=== PATIENT | female | born 1955 | race Caucasian/White ===

== ENCOUNTER → 2019-10-23 09:51 | Outpatient (BNVA) | payer BC, SELFPAY | PROVIDERS: PCP Family Medicine; Visit Provider Nurse Practitioner Family | DX: I50.9 Heart failure, unspecified (principal) | CPT/HCPCS: 71046 ==

== ENCOUNTER → 2019-10-30 08:17 | Outpatient (BNVA) | payer BC, SELFPAY | PROVIDERS: PCP Family Medicine; Visit Provider Nurse Practitioner Family | DX: I50.9 Heart failure, unspecified (principal); R35.0 Frequency of micturition; J32.9 Chronic sinusitis, unspecified | CPT/HCPCS: 80053; 80061; 81003; 83880; 85025 ==

== ENCOUNTER 2020-02-18 06:54 | Day surgery (SDC) | payer BC, SELFPAY ==
[2020-02-18 07:19] VITALS: BP 137/96; PULSE 97; RESP 18; TEMP 36.1; O2SAT 97
[2020-02-18] MEDS: sodium chloride 0.9% 1,000 ML 30 ML IV (07:28)
--- NOTE | 2020-02-18 08:05 | P.ANESASSM_ITS ---
Pre-Anesthetic Assessment Pre-Anesthetic Assessment: Height/Weight: Height 1.63 m Weight 144.242 kg Temp Pulse Resp BP Pulse Ox 97.0 F L 97 18 137/96 97 02/18/20 07:19 02/18/20 07:19 02/18/20 07:19 02/18/20 07:19 02/18/20 07:19 Preop Diagnosis: Screening Proposed Procedure: Operation Date: 02/18/20 08:35 Proposed Procedures p Colonoscopy 97472 Z12.11(Not Applicable) - Rolan Howell MD Last intake: Intake Last Liquid Date 02/17/20 Last Liquid Time 19:30 Last Solid Date 02/17/20 Last Solid Time 19:30 Social: Social History: Tobacco (remote) and No alcohol Exam: Pre-Anes Outpt Exam: alert, oriented x 3, clear to auscultation bi laterally and regular rate & rhythm Airway: Submandibular: WNL Cervical ROM: WNL Dentition: False (upper) History/ROS: No significant history except as noted Pulmonary: Pulmonary: COPD (mild), CALLES and Sleep apnea CV/HEM: CV/HEM: CAD and ND : : None reported Hepatic: Hepatic: None reported GI: GI: GERD (controlled) Metabolic: Metabolic: Morbid obesity Musc/skel: Musc/skel: Fibromyalgia Neuropsych: Neuropsych: Anxiety and Depression Anesthetic Plan: ASA status: 3 Anesthesia: Anesthesia Evaluation and MAC Risk of > 500 ml blood loss (7ml/kg in children): No Meds/Allergies Current Medications: Current Medications Generic Name Dose Route Start Last Admin Trade Name Freq PRN Reason Stop Dose Admin Sodium Chloride 1,000 mls @ 30 ml s/hr 02/18/20 07:15 02/18/20 07:28 Sodium Chloride 0.9% IV 30 mls/hr .Q24H ANNETTE Administration PFSH Anesthesia PFSH: Medical History Apnea, sleep Arteriosclerotic heart disease (ASHD) Degenerative arthritis of knee Diverticulosis Fibromyalgia GERD (gastroesophageal reflux disease) Hx of fracture of clavicle Metabolic syndrome Rosacea Seasonal allergies Thrombocytosis Surgical History History of colonoscopy (~2007) History of hysterectomy History of knee surgery Hx of amputation Partial R greater toe Hx of angioplasty Family History Father Diabetes COPD (chronic obstructive pulmonary disease) Mother Hypertension Cancer MOTHER HAS A HISTORY OF KIDNEY CANCER Denies family history of Anesthesia complication Bleeding disorder Social History Smoking and tobacco status: former smoker Lives independently: Yes History of recent travel: No Data Anesthesia Cardiac Studies: No Data to Display
--- NOTE | 2020-02-18 08:22 | W.PM.OPSFHP ---
Same Day Surgery H&P Indication for Procedure/HPI DATE OF PROCEDURE: February 18, 2020 CHIEF COMPLAINT/INDICATIONFOR SURGICAL PROCEDURE: history of colon PREOP DIAGNOSIS: Screening PLANNED PROCEDRUE: Operation Date: 02/18/20 08:35 Proposed Procedures p Colonoscopy 16935 Z12.11(Not Applicable) - Rolan Howell MD Medications/Allergies* Home Medications Medication Instructions Recorded Confirmed Type albuterol sulfate 90 mcg/actuation 2 puff INHALATION Q6H PRN 10/23/19 02/14/20 History aerosol inhaler aspirin 325 mg tablet 325 mg PO DAILY tab 10/23/19 02/18/20 History cetirizine 10 mg tablet 10 mg PO DAILY tab 10/23/19 02/18/20 History mometasone 50 mcg/actuation nasal 2 spray INTRANASAL BID 10/23/19 02/18/20 History spray triamcinolone acetonide 0.1 % 1 applic TOPICAL BID 10/23/19 02/18/20 History topical cream famotidine 20 mg tablet 20 mg PO DAILY 12/10/19 02/18/20 History tizanidine 2 mg capsule 2 mg PO DAILY PRN cap 12/10/19 02/18/20 History Allergies/Adverse Reactions Allergy/AdvReac Type Severity Reaction Status Date / Time acetaminophen Allergy Unknown Verified 12/10/19 14:26 [From Darvocet-N] celecoxib [From Celebrex] Allergy Unknown Verified 12/10/19 14:26 codeine Allergy Unknown Verified 12/10/19 14:26 hydrocodone Allergy ADR-Nausea Verified 12/10/19 14:26 meperidine [From Demerol] Allergy ALGY-Difficulty Verified 12/10/19 14:26 Breathing oxycodone [From Tylox] Allergy ADR-Nausea Verified 12/10/19 14:26 propoxyphene Allergy Unknown Verified 12/10/19 14:26 [From Darvocet-N] Sulfa (Sulfonamide Allergy Unknown Verified 12/10/19 14:26 Antibiotics) Current Medications: Generic Name Dose Route Start Last Admin Trade Name Freq PRN Reason Stop Dose Admin Sodium Chloride 1,000 mls @ 30 mls/hr 02/18/20 07:15 02/18/20 07:28 Sodium Chloride 0.9% IV 30 mls/hr .Q24H ANNETTE Administration Pertinent History/Comorbid Conditions* Medical History (Updated 01/07/20 @ 15:58 by SHAHANA Mandel) Apnea, sleep Arteriosclerotic heart disease (ASHD) Degenerative arthritis of knee Diverticulosis Fibromyalgia GERD (gastroesophageal reflux disease) Hx of fracture of clavicle Metabolic syndrome Rosacea Seasonal allergies Thrombocytosis Surgical History (Updated 12/10/19 @ 14:44 by Rolan Howell MD) History of colonoscopy (~2007) History of hysterectomy History of knee surgery Hx of amputation Partial R greater toe Hx of angioplasty Family History (Updated 12/10/19 @ 14:31 by CONY Farr) Diabetes Father COPD (chronic obstructive pulmonary disease) Father Cancer Mother MOTHER HAS A HISTORY OF KIDNEY CANCER Hypertension Mother Denies family history of Anesthesia complication Bleeding disorder Social History Smoking and tobacco status: former smoker Lives independently: Yes History of recent travel: No Pertinent Exam Findings alert, oriented x 3 and regular rate & rhythm Recommendations Surgery/Procedure today Coding Level of Care Code Acute Stitching Machine Feeder Or Offbearer for Gopal Contreras
[2020-02-18 11:16] VITALS: BP 134/71; PULSE 83; RESP 16; TEMP 36.7; O2SAT 94
[2020-02-18 11:32] VITALS: BP 119/97; PULSE 80; RESP 18; TEMP 36.6; O2SAT 98
== END 2020-02-18 11:55 | disposition home or self-care (01) ==
PROVIDERS: PCP Family Medicine; Visit Provider Surgery
PROC: 0DJD8ZZ Inspection of Lower Intestinal Tract, Via Natural or Artificial Opening Endoscopic (ICD-10-PCS; CPT 45378; principal; 2020-02-18 08:30)
DX: Z12.11 Encounter for screening for malignant neoplasm of colon (principal); K63.5 Polyp of colon; G47.30 Sleep apnea, unspecified; M19.90 Unspecified osteoarthritis, unspecified site; M79.7 Fibromyalgia; K21.9 Gastro-esophageal reflux disease without esophagitis; J44.9 Chronic obstructive pulmonary disease, unspecified; I25.10 Atherosclerotic heart disease of native coronary artery without angina pectoris; I25.2 Old myocardial infarction; E66.01 Morbid (severe) obesity due to excess calories; Z68.43 Body mass index [BMI] 50.0-59.9, adult
CPT/HCPCS: 45378; 12345; J2704; J7030

== ENCOUNTER 2020-03-04 14:23 | Outpatient (CLI) | payer BC, SELFPAY ==
--- NOTE | 2020-03-04 14:28 | XR_ITS ---
WS: [id number] SCREENING DEXA SCAN Ntractive CLINICAL INFORMATION: POSTMENOPAUSAL STATE COMPARISON: None. FINDINGS: The L1-L4 bone mineral density measures 1.172 g/cm2. This corresponds to a T score score of -0.1 and Z score of 0.2. Left femoral neck bone mineral density measures 0.990 g/cm2. This corresponds to a T score of -0.1 an d Z score of 0.1. Right femoral neck bone mineral density measures 1.012 g/cm2. This corresponds to a T score 0.0of and Z score of 0.3. Mean femoral neck bone mineral density measures 1.001 g/cm2. This corresponds to a T score of -0.1 an d Z score of 0.2. XR/XR DEXA axial skeleton* [id number] IMPRESSION: Normal bone mineralization. Patient's FRAX calculated 10 year probability for major osteoporotic fracture i s 6.2 % and osteoporotic hip fracture is 0.3%.
--- NOTE | 2020-03-04 15:11 | MM_ITS ---
WS: [id number] BILATERAL SCREENING DIGITAL MAMMOGRAM WITH CAD HISTORY: SCREEN COMPARISON: 10/22/2018, 04/04/2017 and 09/21/2017 Bilateral CC and MLO views submitted. Computer aided detection analyzed. Breast composition: There are scattered areas of fibroglandular density. No suspicious masses, microc alcifications or architectural distortion. Asymmetry in the posterior central RIGHT breast has been s table over multiple prior years. Benign calcification in the posterior LEFT breast. MM/[place] [id number] IMPRESSION: BI-RADS: 2-Benign FOLLOW UP: 1 Year Follow-up
== END 2020-03-04 14:24 | disposition home or self-care (01) ==
PROVIDERS: PCP Family Medicine; Visit Provider Family Medicine
DX: Z12.31 Encounter for screening mammogram for malignant neoplasm of breast (principal); Z78.0 Asymptomatic menopausal state
CPT/HCPCS: 77067; 77080

== ENCOUNTER → 2020-04-26 13:02 | Outpatient (BNVA) | payer BC, SELFPAY | PROVIDERS: PCP Family Medicine; Visit Provider Nurse Practitioner | DX: Z11.59 Encounter for screening for other viral diseases; B34.9 Viral infection, unspecified; Z68.43 Body mass index [BMI] 50.0-59.9, adult; F17.211 Nicotine dependence, cigarettes, in remission | CPT/HCPCS: 87635 ==

== ENCOUNTER → 2020-06-17 16:14 | Outpatient (BNVA) | payer BC, SELFPAY | PROVIDERS: PCP Family Medicine; Visit Provider Nurse Practitioner Family | DX: M54.5 Low back pain (principal) | CPT/HCPCS: 81000 ==

== ENCOUNTER → 2020-07-02 15:06 | Outpatient (BNVA) | payer BC, SELFPAY | PROVIDERS: PCP Family Medicine; Visit Provider Nurse Practitioner Family | DX: M79.604 Pain in right leg (principal); M79.605 Pain in left leg; R73.9 Hyperglycemia, unspecified; I10 Essential (primary) hypertension; E78.5 Hyperlipidemia, unspecified; J32.9 Chronic sinusitis, unspecified; J30.9 Allergic rhinitis, unspecified; B37.3 Candidiasis of vulva and vagina; M79.622 Pain in left upper arm; Z68.43 Body mass index [BMI] 50.0-59.9, adult; F17.211 Nicotine dependence, cigarettes, in remission; Z71.89 Other specified counseling | CPT/HCPCS: 80053; 80061; 83036; 84443; 85025 ==

== ENCOUNTER → 2020-10-16 10:36 | Outpatient (BNVA) | payer BC, SELFPAY | PROVIDERS: PCP Family Medicine; Visit Provider Nurse Practitioner Family | DX: R73.9 Hyperglycemia, unspecified (principal); R30.0 Dysuria; Z00.00 Encounter for general adult medical examination without abnormal findings; E78.5 Hyperlipidemia, unspecified; I10 Essential (primary) hypertension; Z68.43 Body mass index [BMI] 50.0-59.9, adult; F17.211 Nicotine dependence, cigarettes, in remission | CPT/HCPCS: 80053; 80061; 81000; 83036; 85025; 87086; 88175 ==

== ENCOUNTER → 2021-05-19 09:53 | Outpatient (BNVA) | payer BC, SELFPAY | PROVIDERS: PCP Family Medicine; Visit Provider Family Medicine | DX: R73.9 Hyperglycemia, unspecified (principal); I10 Essential (primary) hypertension | CPT/HCPCS: 80053; 80061; 84443; 85025 ==

== ENCOUNTER 2021-05-21 14:25 | Outpatient (CLI) | payer BC, SELFPAY ==
--- NOTE | 2021-05-21 14:36 | XR_ITS ---
WS: [id number] Lumbar spine, 3 views, 05/21/2021 Clinical Data: M54.5 - Low back pain Comparison: None. Findings: No compression fractures or subluxation is seen. No disc space narrowing is seen. The transverse proc esses and SI joints are normal. There is osteoarthritic spurring of all lumbar vertebral bodies. XR/XR lumbar spine 2-3V* [id number] Impression: Moderate osteoarthritis of the lumbar vertebral bodies.
== END 2021-05-21 14:26 | disposition home or self-care (01) ==
LOC: RAD 14:32
PROVIDERS: PCP Family Medicine; Visit Provider Family Medicine
DX: M47.816 Spondylosis without myelopathy or radiculopathy, lumbar region (principal)
CPT/HCPCS: 72100

== ENCOUNTER → 2021-09-06 15:41 | Outpatient (BNVA) | payer BC, SELFPAY | PROVIDERS: PCP Family Medicine; Visit Provider Specialist | DX: M25.569 Pain in unspecified knee (principal); M17.0 Bilateral primary osteoarthritis of knee; E66.01 Morbid (severe) obesity due to excess calories; Z68.43 Body mass index [BMI] 50.0-59.9, adult | CPT/HCPCS: 73560; 73565 ==

== ENCOUNTER → 2021-09-16 14:06 | Outpatient (BNVA) | payer BC, SELFPAY | PROVIDERS: PCP Family Medicine; Referring Provider Specialist; Visit Provider Anesthesiology Pain Medicine | DX: G89.29 Other chronic pain (principal); M47.816 Spondylosis without myelopathy or radiculopathy, lumbar region; M79.7 Fibromyalgia; F41.9 Anxiety disorder, unspecified; M25.561 Pain in right knee; M25.562 Pain in left knee; E66.01 Morbid (severe) obesity due to excess calories; M19.90 Unspecified osteoarthritis, unspecified site; Z68.43 Body mass index [BMI] 50.0-59.9, adult; Z87.891 Personal history of nicotine dependence | CPT/HCPCS: 99204 ==

== ENCOUNTER 2021-10-06 06:00 | Outpatient (RCR) | payer BC, SELFPAY | END 2021-10-08 23:59 | disposition home or self-care (01) | LOC: TPT 06:00 | PROVIDERS: PCP Family Medicine; Referring Provider Anesthesiology Pain Medicine; Visit Provider Anesthesiology Pain Medicine | DX: M54.50 Low back pain, unspecified (principal); G89.29 Other chronic pain | CPT/HCPCS: 97162 ==

== ENCOUNTER 2021-10-09 06:00 | Outpatient (RCR) | payer BC, SELFPAY | END 2021-11-08 23:59 | disposition home or self-care (01) | LOC: TPT 06:00 | PROVIDERS: PCP Family Medicine; Referring Provider Anesthesiology Pain Medicine; Visit Provider Anesthesiology Pain Medicine | DX: M54.50 Low back pain, unspecified (principal); G89.29 Other chronic pain | CPT/HCPCS: 97110 ==

== ENCOUNTER 2021-11-09 06:00 | Outpatient (RCR) | payer BC, SELFPAY | END 2021-12-06 23:59 | disposition home or self-care (01) | LOC: TPT 06:00 | PROVIDERS: PCP Family Medicine; Visit Provider Anesthesiology Pain Medicine | DX: M54.50 Low back pain, unspecified (principal); G89.29 Other chronic pain | CPT/HCPCS: 97110 ==

== ENCOUNTER → 2021-11-23 10:15 | Outpatient (BNVA) | payer BC, SELFPAY | PROVIDERS: PCP Family Medicine; Visit Provider Family Medicine | DX: Z00.00 Encounter for general adult medical examination without abnormal findings (principal); E88.81 Metabolic syndrome and other insulin resistance; E78.5 Hyperlipidemia, unspecified; Z12.31 Encounter for screening mammogram for malignant neoplasm of breast | CPT/HCPCS: 80053; 80061; 83036; 84443; 85025; 88175 ==

== ENCOUNTER 2021-12-07 06:00 | Outpatient (RCR) | payer BC, SELFPAY | END 2021-12-08 23:59 | disposition home or self-care (01) | LOC: TPT 06:00 | PROVIDERS: PCP Family Medicine; Visit Provider Anesthesiology Pain Medicine | DX: M54.50 Low back pain, unspecified (principal); G89.29 Other chronic pain | CPT/HCPCS: 97110 ==

== ENCOUNTER 2022-02-09 13:07 | Outpatient (CLI) | payer SELFPAY ==
--- NOTE | 2022-02-09 13:30 | USCV_ITS ---
Henny Downey Age: 66 Gender: F : 1955 Exam Date: 02/09/2022 13:25 Ordering Phys: Sherri Servin NP Technologist: Exam Location: [facility] [place] Indication: lt leg pain PROCEDURES: Venous duplex imaging was performed in only the left lower extremity. The following venous structures were evaluated: common femoral vein, profunda vein, proximal portion of the greater saphenous vein, superficial femoral vein, and the popliteal vein. In addition, the posterior tibial and peroneal trunk were evaluated. FINDINGS: Normal 2-D Doppler and augmentation and compressibility throughout the lower extremity venous structures. Additional imaging through the proximal calf veins also reveals no thrombus. Limited evaluation of the greater saphenous vein is patent with no thrombus.. CONCLUSIONS No evidence of left lower extremity DVT. Talon Cloud MD (Electronically Signed) Final Date: 09 Feb 2022 15:03 S
== END 2022-02-09 13:08 | disposition home or self-care (01) ==
LOC: RAD 13:08
PROVIDERS: PCP Family Medicine; Visit Provider Nurse Practitioner Family
DX: M79.605 Pain in left leg (principal); M79.89 Other specified soft tissue disorders; R60.9 Edema, unspecified
CPT/HCPCS: 80053; 82306; 82607; 82746; 83880; 85025; 93971

== ENCOUNTER → 2022-02-10 08:59 | Outpatient (BNVA) | payer SELFPAY | PROVIDERS: PCP Family Medicine; Visit Provider Nurse Practitioner Family | DX: R73.9 Hyperglycemia, unspecified (principal) | CPT/HCPCS: 83036 ==

== ENCOUNTER → 2022-02-11 11:30 | Outpatient (BNVA) | payer BC, SELFPAY | PROVIDERS: PCP Family Medicine; Visit Provider Family Medicine | DX: M25.472 Effusion, left ankle (principal); M79.89 Other specified soft tissue disorders; R06.02 Shortness of breath | CPT/HCPCS: 71046; 73610; 73630 ==

== ENCOUNTER → 2022-07-21 11:15 | Outpatient (BNVA) | payer MEDICARE, OTHER, SELFPAY | PROVIDERS: PCP Family Medicine; Visit Provider Nurse Practitioner Family | DX: E55.9 Vitamin D deficiency, unspecified (principal); R60.9 Edema, unspecified; R53.83 Other fatigue; M79.7 Fibromyalgia; E66.01 Morbid (severe) obesity due to excess calories; R73.9 Hyperglycemia, unspecified; E88.81 Metabolic syndrome and other insulin resistance; E78.5 Hyperlipidemia, unspecified; F41.9 Anxiety disorder, unspecified; I25.10 Atherosclerotic heart disease of native coronary artery without angina pectoris; I10 Essential (primary) hypertension; Z91.89 Other specified personal risk factors, not elsewhere classified; M79.604 Pain in right leg; M79.605 Pain in left leg; Z12.31 Encounter for screening mammogram for malignant neoplasm of breast; R53.1 Weakness; Z13.820 Encounter for screening for osteoporosis; Z78.0 Asymptomatic menopausal state; J32.9 Chronic sinusitis, unspecified; L65.9 Nonscarring hair loss, unspecified; R42 Dizziness and giddiness | CPT/HCPCS: 80053; 80061; 83036 ==

== ENCOUNTER 2022-09-16 13:05 | Outpatient (CLI) | payer MEDICARE, OTHER, SELFPAY ==
--- NOTE | 2022-09-16 13:30 | XR_ITS ---
WS: [id number] DEXA (DUAL ENERGY X-RAY ABSORPTIOMETRY) Bone mineral density was performed using a [employer] machine. HISTORY: screening COMPARISON: 03/04/2020 Lumbar spine BMD (L1-L4): 1.189 g/cm2 T score: 0.1 Z score: 0.5 Total hip BMD: Left: 0.941 g/cm2. T score: -0.5 Z score: -0.2 Right: 0.995 g/cm2. T score: -0.1 Z score: 0.3 10 year probability of a major osteoporotic fracture is 6.8%. Compared to the prior study from 03/04/2020. Lumbar spine bone mineral density has increased by 1.5%. Bilateral hips bone mineral density has decreased by 3.3%. XR/XR DEXA axial skeleton* [id number] IMPRESSION: NORMAL BONE MINERAL DENSITY based upon the WHO classification for females. Significant decrease in bone mineral density within the hips since the prior .
== END 2022-09-16 13:06 | disposition home or self-care (01) ==
LOC: RAD 13:06
PROVIDERS: PCP Family Medicine; Visit Provider Nurse Practitioner Family
DX: Z13.820 Encounter for screening for osteoporosis (principal); Z78.0 Asymptomatic menopausal state
CPT/HCPCS: 77080

== ENCOUNTER 2022-09-16 13:05 | Outpatient (CLI) | payer MEDICARE, SELFPAY ==
--- NOTE | 2022-09-16 13:20 | MM_ITS ---
WS: [id number] Bilateral screening 3D tomosynthesis digital mammogram, 09/16/2022 Clinical Data: screening Comparison: 03/04/2020, 10/22/2018, 09/21/2017, 04/04/2017, 10/14/2016, 04/14/2016, 04/06/2016, 03/11/201511/27, 10/17/2012, 03/09/2012, 08/26/2011 08/05/2011, 06/03/2010, 05/26/2009 11/21/2007. Findings: The breast parenchymal pattern shows fat replacement. No spiculated masses or clustered calcification s are seen. There are no secondary signs of carcinoma. There are mole markers on the left breast. The re are benign mammograms in both axilla. MM/[place] [id number] Impression: 1. Negative bilateral mammogram unchanged. 2. Recommend annual screening mammograms. BIRADS: 1-Negative FOLLOW UP: 1 Year Follow-up The CAD policy checker was used.
== END 2022-09-16 13:06 | disposition home or self-care (01) ==
LOC: RAD 13:06
PROVIDERS: PCP Family Medicine; Visit Provider Nurse Practitioner Family
DX: Z12.31 Encounter for screening mammogram for malignant neoplasm of breast (principal)
CPT/HCPCS: 77063; 77067

== ENCOUNTER → 2022-12-15 16:26 | Outpatient (BNVA) | payer MEDICARE, OTHER, SELFPAY | PROVIDERS: PCP Family Medicine; Visit Provider Nurse Practitioner Family | DX: J01.00 Acute maxillary sinusitis, unspecified (principal); E66.01 Morbid (severe) obesity due to excess calories; E88.81 Metabolic syndrome and other insulin resistance; I10 Essential (primary) hypertension; Z91.89 Other specified personal risk factors, not elsewhere classified; R09.81 Nasal congestion | CPT/HCPCS: 80053; 80061 ==

== ENCOUNTER 2023-01-15 12:19 | Observation (INO) | payer MEDICARE, OTHER, SELFPAY ==
[2023-01-15] VITALS (9 sets, daily range): BP systolic 104–188; BP diastolic 67–98; PULSE 66–89; RESP 18–24; TEMP 36.4–36.7; O2SAT 98–100
--- NOTE | 2023-01-15 12:30 | ED_ITS ---
HPI - SOB/Dyspnea General: Chief Complaint: Shortness of Breath/Dyspnea Stated Complaint: sob, dizziness Time Seen by Provider: 01/15/23 12:27 History of Present Illness: HPI Narrative: Ms. Bates is a 67-year-old lady presenting to the emergency department for dizziness and shortness of breath. Patient reports worsening symptoms over the past few weeks however significantly worse over the past few days. She reports exertional dyspnea, denies associated cough, occasional chest heaviness. Intensity symptoms is moderate. Course has worsened. No other specific changes in health, exacerbating, or alleviating factors identified. Onset (ago): week(s) Timing: progressively worsening Severity: moderate Exacerbating factors: exertion Associated symptoms: Reports other Review of Systems General: Reports: 10 or more systems reviewed and unremarkable except in HPI and below PFSH ED PFSH: Medical History Apnea, sleep Arteriosclerotic heart disease (ASHD) Degenerative arthritis of knee Diverticulosis Fibromyalgia GERD (gastroesophageal reflux disease) Hx of fracture of clavicle Metabolic syndrome Rosacea Seasonal allergies Thrombocytosis Surgical History History of colonoscopy (02/18/20) History of hysterectomy History of knee surgery Hx of amputation Partial R greater toe Hx of angioplasty Family History Father Diabetes COPD (chronic obstructive pulmonary disease) Thyroid condition Mother Hypertension Cancer MOTHER HAS A HISTORY OF KIDNEY CANCER Stroke Brother Diabetes Grandfather Colon cancer paternal Sister Colon cancer, Onset Age: 35 Denies family history of Ovarian cancer Clotting disorder Heart disease Hyperlipidemia Breast cancer Anesthesia complication Bleeding disorder Uterine cancer Social History Smoking and tobacco status: former smoker Quit status (tobacco): has quit using tobacco Year quit tobacco: 1984 Second hand smoke exposure: No Alcohol intake: current Alcohol intake frequency: holidays/special occasions only Alcohol type: wine and hard liquor Lives independently: Yes Household members: significant other Marital status: service: No Current occupational status: employed Current gender identity: Female Special cristofer needs: No Agree to transfusion: Yes Female Reproductive History: Date of menopause: 11/22/88 Physical Exam Const: COMMON NORMALS: patient oriented x3 and alert GENERAL APPEARANCE: cooperative and well developed HENMT: COMMON NORMALS: normocephalic and atraumatic HEAD & SCALP: normocephalic and atraumatic THROAT: posterior oropharynx normal Eye: COMMON NORMALS: conjunctivae normal CONJUNCTIVA: Yes conjunctivae normal SCLERA: sclerae normal Neck/C-Spine: COMMON NORMALS: supple GENERAL: Yes trachea midline Resp: COMMON NORMALS: clear to auscultation bilaterally EFFORT & INSPECTI ON: Yes able to speak in complete sentences AUSCULTATION: clear to auscultation bilaterally Cardio: COMMON NORMALS: regular rate and regular rhythm RATE: regular rate RHYTHM: regular rhythm GI: COMMON NORMALS: Soft to palpation PALPATION: Yes Soft to palpation and No Tenderness to palpation present (GI) Extremity: GENERAL: Yes normal exam except as noted and No edema Neuro: COMMON NORMALS: patient oriented x3, CN's II-XII intact bilaterally, moves all extremities, no focal motor deficits and no sensory deficits noted SENSORIUM/ORIENTATION: Yes alert and No Orientation impaired Psych: COMMON NORMALS: mental status grossly normal and Normal thought process present THOUGHT PROCESS: Normal thought process present Course Vital Signs: Vital signs: Vital Signs Temperature 97.7 F 01/16/23 17:09 Pulse Rate 85 01/16/23 17:09 Respiratory Rate 18 01/16/23 17:09 Blood Pressure 116/80 01/16/23 17:09 Pulse Oximetry 96 01/16/23 17:09 Oxygen Delivery Me thod Room Air 01/16/23 15:48 Oxygen Flow Rate 3 01/16/23 14:04 MDM - SOB/Dyspnea Medical Decision Making 67-year-old lady presenting with shortness of breath and dizziness as well as generalized weakness. Exam as above. No focal neurologic findings. EKG demonstrates sinus rhythm with normal axis and intervals, there are nonspecific ST segment abnormalities, no STEMI. Labs with leukocytosis and microcytic anemia. Metabolic panel without acute derangement to explain symptoms. Squamous epithelial contamination on urinalysis with no convincing evidence of urinary tract infection. Chest x-ray with no lobar consolidation or pneumothorax. Patient quite symptomatic with exertion and is requiring supplemental oxygen which is new. She therefore requires inpatient evaluation. The results of ED evaluation were discussed with the patient including plan for admission due to requirement for level of care not available if discharged to prevent significant worsening/deterioration. Patient agreeable with plan. Discussed with hospitalist service who was agreeable to admit patient. Medical Records I reviewed the patient's medical records. Lab Data I reviewed the patient's lab results. 01/16/23 13:37 01/16/23 06:42 Labs/Radiology: Radiology Impressions Chest X-Ray 01/15/23 12:38 IMPRESSION: No acute findings. Chest CTA 01/15/23 16:23 IMPRESSION: 1. Negative for pulmonary embolus. 2. Multiple enlarged mediastinal lymph nodes measuring up to 16 mm, nonspecific. 3. Main pulmonary artery is somewhat prominent which can be a finding of pulmonary hypertension. 4. Several hepatic cysts. 5. Spleen borderline enlarged at 13 cm. 6. Bilateral largely upper lobe focal airspace opacities, measuring up to 19 mm in right upper lobe. Highly suspicious nodule(s). Consider non-emergent PET/CT, or tissue sampling.(Reference: Amanda) 7. Cardiomegaly. 8. Ascending thoracic aorta is somewhat prominent at 3.6 cm. REFERENCES: Amanda Shah, et al. Guidelines for Management of Incidental Pulmonary Nodules Detected on CT Images: From the Fleischner Society 2017. Radiology. 2017;284(1):228-243. Venous Duplex 01/15/23 16:42 IMPRESSION: No evidence of deep vein thrombosis. Laboratory Results WBC 10.0 10^3/uL (4.0-10.0) 01/15/23 12:58 RBC 4.57 10^6/uL (4.1-5.3) 01/15/23 12:58 Hgb 8.8 g/dL (11.5-15.3) L 01/15/23 12:58 Hct 32.1 % (37.0-47.0) L 01/15/23 12:58 MCV 70.2 fl (81-99) L 01/15/23 12:58 MCH 19.3 pg (28.0-34.0) L 01/15/23 12:58 MCHC 27.4 g/dL (30.0-36.0) L 01/15/23 12:58 RDW 16.4 % (12.1-15.1) H 01/15/23 12:58 Plt Count 475 10^3/cmm (130-400) H 01/15/23 12:58 MPV 10.6 fL (7.4-10.4) H 01/15/23 12:58 Neut % (Auto) 63.5 % 01/15/23 12:58 Lymph % (Auto) 23.1 % 01/15/23 12:58 [place] % (Auto) 8.1 % 01/15/23 12:58 Eos % (Auto) 3.6 % 01/15/23 12:58 Baso % (Auto) 1.3 % 01/15/23 12:58 Neut # (Auto) 6.35 10^3/uL (1.8-7.7) 01/15/23 12:58 Lymph # (Auto) 2.3 10^3/uL (0.8-4.8) 01/15/23 12:58 [place] # (Auto) 0.8 10^3/uL (0.2-0.9) 01/15/23 12:58 Eos # (Auto) 0.4 10^3/uL (0.0-0.8) 01/15/23 12:58 Baso # (Auto) 0.1 10^3/uL (0.0-0.1) 01/15/23 12:58 Nucleated RBC % (auto) 0 % 01/15/23 12:58 Nucleated RBCs # 0.0 /100WBC 01/15/23 12:58 D-Dimer 0.49 ug/mIFEU (0-0.59) 01/15/23 12:58 Specimen Type Arterial 01/15/23 16:20 Sample Site Radial, left 01/15/23 16:20 ABG pH 7.43 (7.35-7.45) 01/15/23 16:20 ABG pCO2 36.1 mmHg (35-45) 01/15/23 16:20 ABG pO2 79.0 mmHg (80.0-100.0) L 01/15/23 16:20 ABG HCO3 24.2 mmol/L (22-26) 01/15/23 16:20 ABG O2 Saturation 97.3 01/15/23 16:20 ABG Base Excess 0.1 mmol/L (-2.0-2.0) 01/15/23 16:20 Yoan Test Pos 01/15/23 16:20 A-a O2 Gradient 3.4 mmHg (5-10) L 01/15/23 16:20 Hematocrit 29.2 % (37-47) L 01/15/23 16:20 Hgb O2 Saturation 95.1 % (95-100) 01/15/23 16:20 Carboxyhemoglobin 1.5 %THgb (0.4-20.1) 01/15/23 16:20 Methemoglobin 0.6 % (0.4-1.5) 01/15/23 16:20 Total Hemoglobin 9.5 g/dL (12-16) L 01/15/23 16:20 Sodium 142.0 mmol/L (131-143) 01/15/23 16:20 Potassium 3.7 mmol/L (3.5-5.0) 01/15/23 16:20 Glucose 104.0 mg/dL (70-115) 01/15/23 16:20 Ionized Calcium 1.2 mmol/L (1.1-1.4) 01/15/23 16:20 O2 Delivery Device Room air 01/15/23 16:20 FiO2 21.0 % 01/15/23 16:20 Text Transcriber ID Cak 01/15/23 16:20 Sodium 136 mmol/L (136-145) 01/15/23 12:58 Potassium 4.1 mmol/L (3.5-5.1) 01/15/23 12:58 Chloride 102 mmol/L (98-107) 01/15/23 12:58 Carbon Dioxide 24 mmol/L (22-29) 01/15/23 12:58 Anion Gap 14.1 (5-19) 01/15/23 12:58 BUN 14 mg/dL (8-23) 01/15/23 12:58 Creatinine 0.7 mg/dL (0.5-0.9) 01/15/23 12:58 GFR Calculation 84.0 mL/min (90-130) L 01/15/23 12:58 Glucose 120 mg/dL (65-115) H 01/15/23 12:58 Calculated Osmolality 284 mOsm/kg (285-295) L 01/15/23 12:58 Calcium 8.7 mg/dL (8.5-10.5) 01/15/23 12:58 Iron 19 ug/dL (37-145) L 01/15/23 12:58 TIBC 391 mcg/dl 01/15/23 12:58 % Saturation 4.8 % (20-50) L 01/15/23 12:58 Unsat Iron Binding 372 ug/dL (112-347) H 01/15/23 12:58 Ferritin 8 ng/mL (15-150) L 01/15/23 12:58 Total Bilirubin 0.3 mg/dL (0.15-1.2) 01/15/23 12:58 AST 22 U/L (0-32) 01/15/23 12:58 ALT 17 U/L (0-33) 01/15/23 12:58 Alkaline Phosphatase 85 U/L (35-105) 01/15/23 12:58 Troponin T Baseline 10 ng/L (0-10) 01/15/23 12:58 Troponin T 120 Minute 8.82 ng/L (0-10) 01/15/23 14:27 Delta Troponin T -1.18 ABS# (0-10) L 01/15/23 14:27 NT-Pro-B Natriuret Pep 150 pg/mL (0-125) H 01/15/23 12:58 Total Protein 6.6 g/dL (6.6-8.7) 01/15/23 12:58 Albumin 3.7 g/dL (3.5-5.2) 01/15/23 12:58 Globulin 2.9 g/dL (1.3-4.6) 01/15/23 12:58 Lipase 28 U/L (13-60) 01/15/23 12:58 Vitamin B12 461 pg/mL (232-1245) 01/15/23 12:58 Folate 8.4 ng/mL (4.8-37.3) 01/15/23 12:58 Discharge Plan Discharge Patient Disposition: Admitted As Inpatient Admit Provider: Christiano Robin Clinical Impression: Breath shortness, Signs and symptoms of anemia Condition: Stable Discharge Diet: Regular and Cardiac Discharge Activity: Resume usual activity Coding Level of Care Code ED Property Damage Claims Adjustor for Gopal Contreras
--- NOTE | 2023-01-15 12:38 | XRR_ITS ---
PROCEDURE INFORMATION: Exam: XR Chest Exam date and time: 01/15/2023 12:46 PM Age: 67 years old Clinical indication: Shortness of breath; Prior surgery; Surgery type: Right clavicle; Additional info: SOB, palpitations TECHNIQUE: Imaging protocol: Radiologic exam of the chest. Views: 1 view. COMPARISON: CR XR chest 2V* [id number] 02/11/2022 11:56 AM FINDINGS: Lungs: There is no consolidation. Pleural spaces: There is no pleural effusion or pneumothorax. Heart/Mediastinum: The cardiac silhouette is within normal limits of size given AP technique. Bones/joints: Bones are unremarkable. XR/XR chest 1V portable [id number] IMPRESSION: No acute findings.
--- NOTE | 2023-01-15 12:38 | ECG_ITS ---
[facility] Test Date: 2023-01-15 Pat Name: Henny Downey Department: Room: Gender: Female Pocket Builder: : 1955 Requested By: Theodore Villavicencio Order Number: [id number] James MD: Anu Carter M.D. Measurements Intervals [place] Rate: 69 P: 139 [place]: 158 QRS: 15 QRSD: 89 T: 123 QT: 401 QTc: 431 Interpretive Statements ECTOPIC ATRIAL RHYTHM POSSIBLE LEFT ATRIAL ENLARGEMENT [-0.1mV P-WAVE IN V1/V2] ABNORMAL QRS-T ANGLE [QRS-T AXIS DIFFERENCE > 60] Compared to ECG 05/26/2018 09:25:41 Ectopic atrial rhythm now present Sinus rhythm no longer present Myocardial infarct finding no longer present Electronically Signed On 01-15-2023 22:09:08 CDT by Anu Carter M.D. [id number]
[2023-01-15 13:36] LABS: Basophils # 0.1 10^3/uL (0.0-0.1); Basophils % 1.3 %; Eosinophils # 0.4 10^3/uL (0.0-0.8); Eosinophils % 3.6 %; Hematocrit 32.1 % (37.0-47.0); Hemoglobin 8.8 g/dL (11.5-15.3); Lymphocytes # 2.3 10^3/uL (0.8-4.8); Lymphocytes % 23.1 %; Mean Corpuscular HGB Conc 27.4 g/dL (30.0-36.0); Mean Corpuscular Hemoglobin 19.3 pg (28.0-34.0); Mean Corpuscular Volume 70.2 fl (81-99); Mean Platelet Volume 10.6 fL (7.4-10.4); Monocytes # 0.8 10^3/uL (0.2-0.9); Monocytes % 8.1 %; Neutrophils # 6.35 10^3/uL (1.8-7.7); Neutrophils % 63.5 %; Nucleated Red Blood Cells % 0 %; Platelet Count 475 10^3/cmm (130-400); Red Blood Count 4.57 10^6/uL (4.1-5.3); Red Cell Distribution Width 16.4 % (12.1-15.1)
[2023-01-15 13:47] LABS: D Dimer 0.49 ug/mIFEU (0-0.59)
[2023-01-15 13:53] LABS: Troponin(5th) Baseline 10 ng/L (0-10)
[2023-01-15 13:59] LABS: Alanine Aminotransferase 17 U/L (0-33); Albumin Level 3.7 g/dL (3.5-5.2); Alkaline Phosphatase 85 U/L (35-105); Anion Gap 14.1 (5-19); Aspartate Amino Transferase 22 U/L (0-32); Blood Urea Nitrogen 14 mg/dL (8-23); Calcium 8.7 mg/dL (8.5-10.5); Carbon Dioxide 24 mmol/L (22-29); Chloride 102 mmol/L (98-107); Creatinine Clr Calc Pharmacy 96.5671; Globulin 2.9 g/dL (1.3-4.6); Glucose 120 mg/dL (65-115); Lipase 28 U/L (13-60); NT Pro B Type Natriuretic Pept 150 pg/mL (0-125); Osmolality Calculated 284 mOsm/kg (285-295); Potassium 4.1 mmol/L (3.5-5.1); Sodium 136 mmol/L (136-145); Total Bilirubin 0.3 mg/dL (0.15-1.2); Total Protein 6.6 g/dL (6.6-8.7)
--- NOTE | 2023-01-15 14:38 | ECG_ITS ---
[facility] Test Date: 2023-01-15 Pat Name: Henny Downey Department: Room: Gender: Female Manager Delivery: : 1955 Requested By: Theodore Villavicencio Order Number: [id number] James MD: Anu Carter M.D. Measurements Intervals [place] Rate: 66 P: 134 GA: 155 QRS: 42 QRSD: 90 T: 122 QT: 424 QTc: 446 Interpretive Statements ECTOPIC ATRIAL RHYTHM POSSIBLE LEFT ATRIAL ENLARGEMENT [-0.1mV P-WAVE IN V1/V2] LOW QRS VOLTAGE IN PRECORDIAL LEADS [QRS DEFLECTION < 1.0 mV IN CHEST LEADS] ABNORMAL QRS-T ANGLE [QRS-T AXIS DIFFERENCE > 60] Compared to ECG 05/26/2018 09:25:41 Ectopic atrial rhythm now present Sinus rhythm no longer present Myocardial infarct finding no longer present Electronically Signed On 01-15-2023 22:20:35 CDT by Anu Carter M.D. [id number]
[2023-01-15 14:58] LABS: Troponin 5 2HR 8.82 ng/L (0-10)
[2023-01-15 15:01] LABS: Troponin 5 2HR Delta -1.18 ABS# (0-10)
--- NOTE | 2023-01-15 16:23 | CTR_ITS ---
PROCEDURE INFORMATION: Exam: CTA Chest With Contrast Exam date and time: 01/15/2023 4:43 PM Age: 67 years old Clinical indication: Shortness of breath; Additional info: SOB TECHNIQUE: Imaging protocol: Computed tomographic angiography of the chest with contrast. 3D rendering (Not supervised by radiologist): MIP and/or 3D reconstructed images were created by the technologist. Radiation optimization: All CT scans at this facility use at least one of these dose optimization techniques: automated exposure control; mA and/or kV adjustment per patient size (includes targeted exams where dose is matched to clinical indication); or iterative reconstruction. Contrast material: OMNI 350; Contrast volume: 73 ml; Contrast route: INTRAVENOUS (IV); REPORTING DATA: Count of CT and Cardiac NM exams in prior 12 months: This patient has received 0 known CTs and 0 known cardiac nuclear medicine studies in the 12 months prior to the current study. COMPARISON: CR (CHEST, ) 01/15/2023 12:46 PM RADIATION DOSE METRICS: Total DLP (mGy-cm): 538.58 FINDINGS: Pulmonary arteries: Main pulmonary artery is somewhat prominent which can be a finding of pulmonary hypertension. Aorta: Ascending thoracic aorta is somewhat prominent at 3.6 cm. Lungs: Bilateral largely upper lobe focal airspace opacities, measuring up to 19 mm in right upper lobe. Pleural spaces: Unremarkable. No pneumothorax. No pleural effusion. Heart: Cardiomegaly. Lymph nodes: Multiple enlarged mediastinal lymph nodes measuring up to 16 mm, nonspecific. Liver: Several hepatic cysts. Spleen: Spleen borderline enlarged at 13 cm. Bones/joints: Unremarkable. No acute fracture. Soft tissues: Unremarkable. CT/CT angio chest PE protcl [id number] IMPRESSION: 1. Negative for pulmonary embolus. 2. Multiple enlarged mediastinal lymph nodes measuring up to 16 mm, nonspecific. 3. Main pulmonary artery is somewhat prominent which can be a finding of pulmonary hypertension. 4. Several hepatic cysts. 5. Spleen borderline enlarged at 13 cm. 6. Bilateral largely upper lobe focal airspace opacities, measuring up to 19 mm in right upper lobe. Highly suspicious nodule(s). Consider non-emergent PET/CT, or tissue sampling.(Reference: Amanda) 7. Cardiomegaly. 8. Ascending thoracic aorta is somewhat prominent at 3.6 cm. REFERENCES: Amanda Shah et al. Guidelines for Management of Incidental Pulmonary Nodules Detected on CT Images: From the Fleischner Society 2017. Radiology. 2017;284(1):228-243.
[2023-01-15 16:31] LABS: ABG PCO2 36.1 mmHg (35-45); ABG PH Result 7.43 (7.35-7.45); Alveolar-Arterial Oxygen Gradi 3.4 mmHg (5-10); Arterial Blood Gas Hematocrit 29.2 % (37-47); Base Excess ABG 0.1 mmol/L (-2.0-2.0); Blood Gas Allen Test Pos; Blood Gas Operator Identificat CAK; Blood Gas Sample Site Radial, left; Blood Gas Sample Type Arterial; Carboxyhemoglobin 1.5 %THgb (0.4-20.1); HCO3 ABG 24.2 mmol/L (22-26); HGB O2 Sat 95.1 % (95-100); Ionized Calcium Level - ABG 1.2 mmol/L (1.1-1.4); Methemoglobin 0.6 % (0.4-1.5); Oxygen Device ROOM AIR; Oxygen Saturation ABG 97.3; Potassium Level - ABG 3.7 mmol/L (3.5-5.0); Total Hemoglobin 9.5 g/dL (12-16)
[2023-01-15] MEDS: iohexol 350 mg/mL 500 mL Btl (per mL) IV (16:42)
--- NOTE | 2023-01-15 16:42 | USR_ITS ---
PROCEDURE INFORMATION: Exam: US Duplex Lower Extremity Veins, Bilateral Exam date and time: 01/15/2023 8:10 PM Age: 67 years old Clinical indication: Other: SOB; Additional info: Dvt TECHNIQUE: Imaging protocol: Real-time duplex ultrasound of the bilateral extremities with 2-D man scale, color Doppler flow and spectral waveform analysis including responses to compression and other maneuvers (when performed) with image documentation. Complete exam focused on the lower extremity veins. COMPARISON: CR XR ankle LT min 3V* [id number] 02/11/2022 11:56 AM FINDINGS: Right deep veins: Unremarkable. The common femoral, femoral, proximal profunda femoral and popliteal veins are patent without thrombus. Normal Doppler waveforms. Normal compressibility and/or augmentation response. Right superficial veins: Saphenofemoral junction is patent without thrombus. Left deep veins: Unremarkable. The common femoral, femoral, proximal profunda femoral and popliteal veins are patent without thrombus. Normal Doppler waveforms. Normal compressibility and/or augmentation response. Left superficial veins: Saphenofemoral junction is patent without thrombus. Soft tissues: Unremarkable. US/[place] [id number] IMPRESSION: No evidence of deep vein thrombosis.
--- NOTE | 2023-01-15 16:45 | P.HP_ITS ---
Providers/Chief Complaint Primary Care Provider: Veronica Rodríguez MD Chief Complaint: sob, dizziness History of Present Illness Henny Downey is a 67 year old female with a past medical history of sleep apnea, fibromyalgia, GERD, who presents to [facility] due to weakness, fatigue, shortness of breath with exertion. Patient tells me that for the last few weeks, she has felt increasingly short of breath, short of breath w ith minimal exertion, she also feels lightheaded and dizzy at times, especially with exertion, she feels more weak and fatigued and tired. Denies any bloody or black stools, she has never had a EGD, she has had a colonoscopy which was unremarkable, no history of prior anemia. She is on aspirin and Plavix for CAD, but denies a history of stenting she had an angiogram she tells me roughly 5 years ago which was within normal limits. I am not sure why he is on dual antiplatelet therapy. She denies any fevers, no chills. No cough. No recent surgery. No calf pain, no calf swelling. Does report lightheadedness, no dizziness, no history of syncope. Denies any bloody or black stools. Denies any hemoptysis. Denies a history of blood transfusions Review of Systems Const: Reports: fatigue and malaise; Denies: fever(s) or chills Eyes: Denies: change in vision Card: Reports: dyspnea on exertion; Denies: chest pain or palpitations Resp: Reports: dyspnea; Denies: non-productive cough GI: Denies: abdominal pain, nausea or vomiting : Denies: flank pain or difficulty voiding Musc: Reports: neck pain and back pain Skin/Breast: Denies: rash Neuro: Reports: dizziness; Denies: headache(s), numbness in extremities or weakness in extremities Psych: Reports: anxiety Medications/Allergies Home Medications Medication Instructions Recorded Confirmed Last Taken Type aspirin 325 mg tablet 325 mg PO DAILY 10/23/19 01/15/23 01/15/23 History albuterol sulfate 90 mcg/actuation 2 puff inhalation Q6H PRN 07/02/20 01/15/23 Unknown Rx aerosol inhaler (ProAir HFA) Shortness Of Breath #18 grams mupirocin 2 % topical ointment 1 applic topical BID PRN sores #22 10/18/20 01/15/23 Unknown Rx grams ketoconazole 2 % topical cream 1 applic topical BID #60 grams 06/24/21 01/15/23 Unknown Rx cholecalciferol (vitamin D3) 50 50 mcg PO DAILY 90 days #90 caps 07/01/22 01/15/23 01/14/23 Rx mcg (2,000 unit) capsule triamcinolone acetonide 55 mcg 1 spray intranasal DAILY #16.9 mL 07/01/22 01/15/23 Unknown Rx nasal spray aerosol (Nasacort) levocetirizine 5 mg tablet (Xyzal) 5 mg PO DAILY 90 days #90 tabs 08/15/22 01/15/23 01/15/23 Rx nebivolol 10 mg tablet (Bystolic) 10 mg PO DAILY #30 tabs 01/11/23 01/15/23 01/15/23 Rx buspirone 10 mg tablet 10 mg PO BID PRN Anxiety 01/15/23 01/15/23 Unknown History clopidogrel 75 mg tablet 75 mg PO BEDTIME 01/15/23 01/15/23 01/14/23 History cranberry 400 mg capsule 400 mg PO DAILY 01/15/23 01/15/23 01/15/23 History duloxetine 60 mg capsule,delayed 60 mg PO BID 01/15/23 01/15/23 01/15/23 History release famotidine 40 mg tablet 40 mg PO DAILY 01/15/23 01/15/23 01/15/23 History methocarbamol 500 mg tablet 1,000 mg PO BID PRN Pain 01/15/23 01/15/23 Unknown History montelukast 10 mg tablet 10 mg PO DAILY 01/15/23 01/15/23 01/15/23 History Allergies Allergy/AdvReac Type Severity Reaction Status Date / Time codeine Allergy Unknown Verified 01/11/23 13:35 meperidine [From Demerol] Allergy ALGY-Difficulty Verified 01/11/23 13:35 Breathing propoxyphene Allergy Unknown Verified 01/11/23 13:35 [From Darvocet-N] Sulfa (Sulfonamide Allergy Unknown Verified 01/11/23 13:35 Antibiotics) PFSH Acute PFSH: Medical History Apnea, sleep Arteriosclerotic heart disease (ASHD) Degenerative arthritis of knee Diverticulosis Fibromyalgia GERD (gastroesophageal reflux disease) Hx of fracture of clavicle Metabolic syndrome Rosacea Seasonal allergies Thrombocytosis Surgical History History of colonoscopy (02/18/20) History of hysterectomy History of knee surgery Hx of amputation Partial R greater toe Hx of angioplasty Family History Father Diabetes COPD (chronic obstructive pulmonary disease) Thyroid condition Mother Hypertension Cancer MOTHER HAS A HISTORY OF KIDNEY CANCER Stroke Brother Diabetes Grandfather Colon cancer paternal Sister Colon cancer, Onset Age: 35 Denies family history of Ovarian cancer Clotting disorder Heart disease Hyperlipidemia Breast cancer Anesthesia complication Bleeding disorder Uterine cancer Social History Smoking and tobacco status: former smoker Quit status (tobacco): has quit using tobacco Year quit tobacco: 1984 Second hand smoke exposure: No Alcohol intake: current Alcohol intake frequency: holidays/special occasions only Alcohol type: wine and hard liquor Lives independently: Yes Household members: significant other Marital status: service: No Current occupational status: employed Current gender identity: Female Special cristofer needs: No Agree to transfusion: Yes Female Reproductive History: Date of menopause: 11/22/88 Vitals/I&O/Wt Last Vital Signs Temp 98.1 F 01/15/23 12:25 Pulse 68 01/15/23 15:30 Resp 18 01/15/23 12:28 BP 129/78 01/15/23 15:30 Pulse Ox 100 01/15/23 15:30 O2 Del Method 01/15/23 13:28 Weight last 48 hrs Weight 136.078 kg Physical Exam Const: COMMON NORMALS: no acute distress and patient oriented x3 HENMT: COMMON NORMALS: normocephalic HEAD & SCALP: normocephalic Eye: COMMON NORMALS: Equal, round and reactive pupils present and EOMs intact bilaterally Neck/C-Spine: COMMON NORMALS: no JVD Lymph: LYMPHATIC: no lymphadenopathy noted Resp: COMMON NORMALS: normal respiratory effort, No retractions, No use of accessory muscles and clear to auscultation bilaterally AUSCULTATION: clear to auscultation bilaterally Cardio: COMMON NORMALS: no JVD, regular rate, regular rhythm, S1 normal heart sound present and S2 normal heart sound present RATE: regular rate RHYTHM: regular rhythm HEART SOUNDS: S1 normal heart sound present and S2 normal heart sound present GI: COMMON NORMALS: Normal to inspection, nondistended, normoactive bowel sounds present, Soft to palpation and non-tender PALPATION: Yes Soft to palpation and Yes No hepatosplenomegaly present : COMMON NORMALS: Yes no CVA tenderness Extremity: COMMON NORMALS: no calf tenderness and no pedal edema Neuro: COMMON NORMALS: patient oriented x3, CN's II-XII intact bilaterally, moves all extremities and no focal motor deficits Psych: COMMON NORMALS: mental status grossly normal Data 01/15/23 12:58 01/15/23 12:58 A&P Assessment and plan (1) Shortness of breath: (2) Fatigue: (3) Weakness: (4) Anemia: Plan Anemia -Etiology unclear -She is on aspirin and Plavix I am not sure exactly why given she does not have any stents, no history of strokes -Iron studies, B12, folate -Hemoccult stool -Monitor hemoglobin -Transfuse if less than 7 -Hold aspirin, hold Plavix -DVT prophylaxis, SCDs -Full code Shortness of breath with exertion -DuoNeb as needed -No history of asthma, no wheezing on exam, no lower extremity edema -Do CT angiogram with chest to rule out embolism -Cardiac echo -Venous ultrasound -Telemetry monitoring -Serial EKGs serial troponins telemetry monitoring Obesity Attestations Medical Necessity Statement*: Patient requires hospitalization, patient with observation, for anemia, fatigue, weakness, shortness of breath Diagnoses Shortness of breath R06.02 Fatigue R53.83 Weakness R53.1 Anemia D64.9
[2023-01-15 17:18] LABS: Ferritin 8 ng/mL (15-150); Iron 19 ug/dL (37-145); Percent Saturation 4.8 % (20-50); Total Iron Binding Capacity 391 mcg/dl; Unsaturated Iron Binding 372 ug/dL (112-347)
[2023-01-15 17:22] LABS: Folate Level 8.4 ng/mL (4.8-37.3)
[2023-01-15 17:34] LABS: Vitamin B12 461 pg/mL (232-1245)
--- NOTE | 2023-01-15 18:38 | ECG_ITS ---
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 Measurements Intervals [place] Rate: 76 P: 38 [place]: 162 QRS: 38 QRSD: 70 T: 31 QT: 389 QTc: 440 Interpretive Statements SINUS RHYTHM Compared to ECG 01/15/2023 14:14:58 Ectopic atrial rhythm no longer present Electronically Signed On 01-16-2023 23:47:30 CDT by Anu Carter M.D. [email or web address] of smith countyHumselect medical specialty hospital [id number]
[2023-01-15 18:53] LABS: Troponin 5 6HR 7.29 ng/L (0-10)
[2023-01-15 19:25] LABS: Troponin 5 6HR Delta -2.71 ng/L (0-12)
[2023-01-15 20:39] LABS: Basophils # 0.2 10^3/uL (0.0-0.1); Basophils % 1.5 %; Eosinophils # 0.4 10^3/uL (0.0-0.8); Eosinophils % 3.4 %; Hematocrit 30.6 % (37.0-47.0); Hemoglobin 8.6 g/dL (11.5-15.3); Lymphocytes # 2.5 10^3/uL (0.8-4.8); Lymphocytes % 23.9 %; Mean Corpuscular HGB Conc 28.1 g/dL (30.0-36.0); Mean Corpuscular Hemoglobin 19.7 pg (28.0-34.0); Monocytes # 0.7 10^3/uL (0.2-0.9); Monocytes % 7.1 %; Neutrophils # 6.58 10^3/uL (1.8-7.7); Neutrophils % 63.7 %; Nucleated Red Blood Cells % 0 %; Platelet Count 432 10^3/cmm (130-400); Red Blood Count 4.37 10^6/uL (4.1-5.3); Red Cell Distribution Width 16.2 % (12.1-15.1); White Blood Count 10.3 10^3/uL (4.0-10.0)
[2023-01-15] MEDS: pantoprazole 40 mg SDV IVP (20:48)
[2023-01-15] MEDS: sucralfate 1 gm Tablet PO (20:50)
[2023-01-15] MEDS: duloxetine 60 mg Capsule PO (20:50)
[2023-01-15 23:08] LABS: Specific Gravity, Urine 1.015 (1.005-1.030); Urine Appearance Clear (CLEAR); Urine Color Yellow (Yellow); pH Urine 5 (5-7)
[2023-01-15 23:09] LABS: Add Urine Microscopic? YES; Bilirubin Urine Neg (Negative); Blood Urine Neg (Negative); Glucose Urine UA Norm (Normal); Ketones Urine Negative (Negative); Leukocyte Esterase Urine 1+ (Negative); Nitrate Urine Negative (Negative); Protein Urine Neg (Negative); Urobilinogen Urine Norm (Negative)
[2023-01-15 23:11] LABS: Bacteria Urine 1+ /hpf; WBC Urine 0-4 /hpf (0-5)
[2023-01-16] VITALS (15 sets, daily range): BP systolic 102–138; BP diastolic 22–80; PULSE 60–86; RESP 16–18; TEMP 36.2–36.7; O2SAT 94–100
--- NOTE | 2023-01-16 06:00 | USCV_ITS ---
Henny Downey Age: 67 Gender: F : 1955 Exam Date: 01/16/2023 09:48 Ordering Phys: Christiano Robin MD Technologist: Bulmaro Martin [place] [facility] [place] Indication: chf BP: 142 / 73 HR: 70 Rhythm: Sinus Technical Quality: Adequate MEASUREMENTS (Male / Female) Normal Values 2D ECHO LV Diastolic Diameter PLAX 3.7 cm 4.2 - 5.9 / 3.9 - 5.3 cm LV Systolic Diameter PLAX 2.3 cm IVS Diastolic Thickness 1.0 cm 0.6 - 1.0 / 0.6 - 0.9 cm IVS Systolic Thickness 1.6 cm LVPW Diastolic Thickness 1.3 cm 0.6 - 1.0 / 0.6 - 0.9 cm LVPW Systolic Thickness 1.5 cm LVOT Diameter 2.0 cm LV Ejection Fraction 2D Teich 70.2 % LV Ejection Fraction MOD 2C 79.0 % LV Ejection Fraction 2C AL 78.7 % LA Diameter 3.6 cm Aorta at Sinotubular Diameter 3.1 cm M-MODE Aortic Annulus Diameter 4.2 cm LA Ao Ratio MM 0.9 MV E Point Septal Separation 0.9 cm DOPPLER AV Peak Velocity 216.0 cm/s LVOT Peak Velocity 116.0 cm/s AV Area Cont Eq vti 1.7 cm squared AV Area Cont Eq pk 1.7 cm squared MV Area PHT 5.0 cm squared Mitral E to A Ratio 0.8 MV E' Velocity 58.0 cm/s Mitral E to MV E' Ratio 13.2 Mitral E to LV E' Lateral Ratio 14.8 Mitral E to LV E' Septal Ratio 12.0 TR Peak Velocity 190.3 cm/s TR Peak Gradient 14.5 mmHg TV Peak E Velocity 78.0 cm/s Right Atrial Pressure 3.0 mmHg Pulmonary Artery Systolic Pressu 17.5 mmHg FINDINGS Left Ventricle Normal left ventricular size and systolic function, EF 78 %. Mild left ventricular hypertrophy. No regional wall motion abnormalities. Grade I/IV diastolic dysfunction (abnormal relaxation filling pattern), normal to mildly elevated filling pressures. Right Ventricle The right ventricle is normal in size and function. Right Atrium The right atrium is normal in size. Left Atrium The left atrium is normal in size. Mitral Valve Mild mitral annular calcification. Aortic Valve Thickened aortic valve. Trace aortic valve regurgitation. Tricuspid Valve No gross abnormalities noted Pulmonic Valve Pulmonic valve not well visualized. Pericardium Normal pericardium without effusion. Aorta Normal ascending aorta dimension. IVC The inferior vena cava appears normal. CONCLUSIONS Normal left ventricular size and systolic function, EF 78 %. Mild left ventricular hypertrophy. No regional wall motion abnormalities. Grade I/IV diastolic dysfunction (abnormal relaxation filling pattern), normal to mildly elevated filling pressures. Thickened aortic valve. Trace aortic valve regurgitation. Mild mitral annular calcification. There is no pericardial effusion. There are no intracardiac masses. No previous study is available for comparison. Dr Anu Carter MD FACC (Electronically Signed) Final Date: 16 January 2023 19:13 S
[2023-01-16 06:52] LABS: Basophils # 0.2 10^3/uL (0.0-0.1); Basophils % 1.6 %; Eosinophils # 0.4 10^3/uL (0.0-0.8); Eosinophils % 3.9 %; Hematocrit 31.2 % (37.0-47.0); Hemoglobin 8.6 g/dL (11.5-15.3); Lymphocytes # 2.1 10^3/uL (0.8-4.8); Lymphocytes % 22.4 %; Mean Corpuscular HGB Conc 27.6 g/dL (30.0-36.0); Mean Corpuscular Hemoglobin 19.7 pg (28.0-34.0); Mean Corpuscular Volume 71.4 fl (81-99); Mean Platelet Volume 10.3 fL (7.4-10.4); Monocytes # 0.7 10^3/uL (0.2-0.9); Monocytes % 7.3 %; Neutrophils # 5.95 10^3/uL (1.8-7.7); Neutrophils % 64.4 %; Nucleated Red Blood Cells % 0 %; Platelet Count 425 10^3/cmm (130-400); Red Blood Count 4.37 10^6/uL (4.1-5.3); Red Cell Distribution Width 16.2 % (12.1-15.1); White Blood Count 9.2 10^3/uL (4.0-10.0)
[2023-01-16 07:05] LABS: Estmated Average Glucose 117; Hemoglobin A1C 5.7 % (4.0-6.0)
[2023-01-16 07:08] LABS: Chol HDL Ratio 3.41 mg/dL (0.0-4.40); Cholesterol 126 mg/dL (0-200); HDL Cholesterol 37 mg/dL (60-100); LDL Cholesterol Calculated 68 mg/dL (50-129); LDL HDL Ratio 1.84 RATIO (0.00-3.22); Triglycerides 103 mg/dL (0-150)
[2023-01-16 07:18] LABS: Blood Urea Nitrogen 14 mg/dL (8-23); Calcium 8.5 mg/dL (8.5-10.5); Carbon Dioxide 24 mmol/L (22-29); Chloride 103 mmol/L (98-107); Creatinine Clr Calc Pharmacy 96.5671; Glomerular Filtration Rate 123.8 mL/min (90-130); Glucose 133 mg/dL (65-115); Osmolality Calculated 286 mOsm/kg (285-295); Sodium 137 mmol/L (136-145); Thyroid Stimulating Hormone 0.85 uIU/mL (0.27-4.20)
[2023-01-16] MEDS: sodium chloride 0.9% 1,000 ML 75 ML IV (08:12)
[2023-01-16] MEDS: duloxetine 60 mg Capsule PO (08:12)
[2023-01-16] MEDS: cholecalciferol (vitamin D3) 1,000 unit Tablet 2000 UNIT PO (08:12)
[2023-01-16] MEDS: sucralfate 1 gm Tablet PO (08:12)
[2023-01-16] MEDS: montelukast sodium 10 mg Tablet PO (08:12)
[2023-01-16] MEDS: iron sucrose 200 MG in sodium chloride 0.9% (100 ml) 100 ML 220 MG IV (08:13)
[2023-01-16] MEDS: pantoprazole 40 mg SDV IVP (08:13)
--- NOTE | 2023-01-16 10:13 | PM.CONSULT ---
Providers/Reason For Consult Consulting Physician/Specialty*: Hospitalist Reason for Consult*: Anemia Attending Physician: Christiano Robin MD Primary Care Provider: Veronica Rodríguez MD History of Present Illness History of Present Illness Henny Downey is a 67 year old female who presents with fatigue, lightheadedness and dizziness. The patient was found to be anemic. Patient was admitted to the hospital service. The patient has no history of hematemesis, melena or black tarry stools. The patient has had a colonoscopy back in 2019. This colonoscopy was reportedly negative. Therefore, I was asked to perform an EGD on this patient. Review of Systems General: Reports: 10 or more systems reviewed and unremarkable except in HPI and below Medications/Allergies Home Medications Medication Instructions Recorded Confirmed Last Taken Type aspirin 325 mg tablet 325 mg PO DAILY 10/23/19 01/15/23 01/15/23 History albuterol sulfate 90 mcg/actuation 2 puff inhalation Q6H PRN 07/02/20 01/15/23 Unknown Rx aerosol inhaler (ProAir HFA) Shortness Of Breath #18 grams mupirocin 2 % topical ointment 1 applic topical BID PRN sores #22 10/18/20 01/15/23 Unknown Rx grams ketoconazole 2 % topical cream 1 applic topical BID #60 grams 06/24/21 01/15/23 Unknown Rx cholecalciferol (vitamin D3) 50 50 mcg PO DAILY 90 days #90 caps 07/01/22 01/15/23 01/14/23 Rx mcg (2,000 unit) capsule triamcinolone acetonide 55 mcg 1 spray intranasal DAILY #16.9 mL 07/01/22 01/15/23 Unknown Rx nasal spray aerosol (Nasacort) levocetirizine 5 mg tablet (Xyzal) 5 mg PO DAILY 90 days #90 tabs 08/15/22 01/15/23 01/15/23 Rx nebivolol 10 mg tablet (Bystolic) 10 mg PO DAILY #30 tabs 01/11/23 01/15/23 01/15/23 Rx buspirone 10 mg tablet 10 mg PO BID PRN Anxiety 01/15/23 01/15/23 Unknown History clopidogrel 75 mg tablet 75 mg PO BEDTIME 01/15/23 01/15/23 01/14/23 History cranberry 400 mg capsule 400 mg PO DAILY 01/15/23 01/15/23 01/15/23 History duloxetine 60 mg capsule,delayed 60 mg PO BID 01/15/23 01/15/23 01/15/23 History release famotidine 40 mg tablet 40 mg PO DAILY 01/15/23 01/15/23 01/15/23 History methocarbamol 500 mg tablet 1,000 mg PO BID PRN Pain 01/15/23 01/15/23 Unknown History montelukast 10 mg tablet 10 mg PO DAILY 01/15/23 01/15/23 01/15/23 History Allergies Allergy/AdvReac Type Severity Reaction Status Date / Time codeine Allergy Unknown Verified 01/11/23 13:35 meperidine [From Demerol] Allergy ALGY-Difficulty Verified 01/11/23 13:35 Breathing propoxyphene Allergy Unknown Verified 01/11/23 13:35 [From Darvocet-N] Sulfa (Sulfonamide Allergy Unknown Verified 01/11/23 13:35 Antibiotics) Current Medications Generic Name Dose Route Start Last Admin Trade Name Niya PRN Reason Stop Dose Admin Duloxetine HCl 60 mg 01/15/23 18:33 01/16/23 08:12 Duloxetine 60 Mg Capsule PO 60 mg BID ANNETTE Administration Iron Sucrose 200 mg/ Sodium 110 mls @ 220 mls/hr 01/16/23 07:30 01/16/23 09:06 Chloride IV 01/20/23 07:59 Infused Q24H ANNETTE Infusion Sodium Chloride 1,000 mls @ 75 mls/hr 01/16/23 07:00 01/16/23 08:12 Sodium Chloride 0.9% IV 75 mls/hr .[id number] ANNETTE Administration Montelukast Sodium 10 mg 01/16/23 09:00 01/16/23 08:12 Montelukast Sodium 10 Mg Tablet PO 10 mg DAILY ANNETTE Administration Pantoprazole Sodium 40 mg 01/15/23 18:33 01/16/23 08:13 Pantoprazole 40 Mg Sdv IVP 40 mg Q12H ANNETTE Administration Sucralfate 1 gm 01/15/23 18:33 01/16/23 08:12 Sucralfate 1 Gm Tablet PO 1 gm Q12H ANNETTE Administration Vitamin D 2,000 unit 01/16/23 09:00 01/16/23 08:12 Cholecalciferol (Vitamin D3) 1,000 Unit Tablet PO 2,000 unit DAILY ANNETTE Administration PFSH Acute PFSH: Medical History Apnea, sleep Arteriosclerotic heart disease (ASHD) Degenerative arthritis of knee Diverticulosis Fibromyalgia GERD (gastroesophageal reflux disease) Hx of fracture of clavicle Metabolic syndrome Rosacea Seasonal allergies Thrombocytosis Surgical History History of colonoscopy (02/18/20) History of hysterectomy History of knee surgery Hx of amputation Partial R greater toe Hx of angioplasty Family History Father Diabetes COPD (chronic obstructive pulmonary disease) Thyroid condition Mother Hypertension Cancer MOTHER HAS A HISTORY OF KIDNEY CANCER Stroke Brother Diabetes Grandfather Colon cancer paternal Sister Colon cancer, Onset Age: 35 Denies family history of Ovarian cancer Clotting disorder Heart disease Hyperlipidemia Breast cancer Anesthesia complication Bleeding disorder Uterine cancer Social History Smoking and tobacco status: former smoker Quit status (tobacco): has quit using tobacco Year quit tobacco: 1984 Second hand smoke exposure: No Alcohol intake: current Alcohol intake frequency: holidays/special occasions only Alcohol type: wine and hard liquor Lives independently: Yes Household members: significant other Marital status: service: No Current occupational status: employed Current gender identity: Female Special cristofer needs: No Agree to transfusion: Yes Female Reproductive History: Date of menopause: 11/22/88 Vitals/I&O/Wt Last Vital Signs Temp 97.8 F 01/16/23 08:00 Pulse 72 01/16/23 08:00 Resp 16 01/16/23 08:00 BP 118/73 01/16/23 08:00 Pulse Ox 97 01/16/23 08:00 O2 Del Method 01/16/23 08:00 01/15/23 01/16/23 01/16/23 22:59 06:59 14:59 Intake Total 240 / 240 110 / 110 Output Total 200 / 200 Balance 240 / 240 -90 / -90 Weight last 48 hrs Weight 300 lb Physical Exam Narrative: Generally, no acute distress HEENT: Normocephalic atraumatic Lungs: Clear to auscultation Heart: Regular rate and rhythm with a 2/6 systolic ejection murmur. There is no S3 or S4. There is no rubs clicks or JVD noted Abdomen: Morbidly obese, soft, nontender. There is no masses that I can appreciate. There is no hernias that I can appreciate. The patient has no costovertebral angle tenderness Extremities: There is no obvious deformities or point tenderness suggestive of fracture. The patient has good capillary refill in both her hands and feet. The patient has 2+ dorsalis pedis and posterior tibialis pulses Neurologic: The patient is awake, alert, oriented x3 the patient moves all 4 extremities without difficulty. The patient sensations intact to light touch throughout. Data 01/16/23 06:42 01/16/23 06:42 Attestation for Other Data: I personally reviewed and interpreted the following: (All labs were reviewed) A&P Assessment and plan (1) Anemia: We will schedule the patient for the risk and benefits of EGD have been explained to the patient. The patient seems to understand his risk and benefits would like to proceed. Coding Level of Care Code 25664 Diagnoses Anemia D64.9
--- NOTE | 2023-01-16 10:39 | PC.CHAP ---
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 visit [] Patient/Family/Request visit [] Outpatient visit [] Follow-up visit [] Physician referral [] Code/Alert [x] Routine visit [] Staff referral [] Actively dying [] Patient sleeping [] Family support [] [] Out of room [] Palliative care [] [] Receiving care in room [] Pre-surgical visit [] Trauma [] Long length of stay [] ICU visit [] Other: Relational/Emotional Strength [] Patient feels connected with others/family/visitors/staff [] Distress [] Loneliness/isolation [] Abandonment Spirituality of Patient [] Person of Kate [] Attends Protestant of their Kate [] Believes in Prayer [] Reads Bible or Religion materials [] There are Spiritual issues to be addressed 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 Interventions [x] Prayer [] Active listening [] Non-anxious presence [] Spiritual/emotional support [] Crisis/trauma care [] Spiritual counseling [] Bereavement support [] Provided bereavement packet [] Provided Bible/devotional materials [] Provided toy/stuffed animal, coloring book to patient or family member [] Provided Communion [] Anointing/[place] [] Salvation [] Completed spiritual assessment [] Other: Impact on Illness or Injury [] Angry [] Fearful [] Anxious [] Often cries [] Exhaustion [] Unable to work [] Unable to attend scientology [] Unable to walk/stand [] Unable to read [] Unable to drive [] Unable to eat/drink [] Unable to sleep [] Unable to be with family [] Patient intubated [] Other: Summary Time spent with patient 5 min
--- NOTE | 2023-01-16 13:11 | PM.PN ---
Subjective Subjective: Patient was seen this morning she denies any fevers, no chills, no nausea, vomiting, no chest pain, no cardiac labs. Vitals/I&O/Wt Last Vital Signs Temp 97.8 F 01/16/23 11:29 Pulse 72 01/16/23 11:29 Resp 18 01/16/23 11:29 BP 125/72 01/16/23 11:29 Pulse Ox 98 01/16/23 11:29 O2 Del Method 01/16/23 11:29 01/15/23 01/16/23 01/16/23 22:59 06:59 14:59 Intake Total 240 / 240 110 / 110 Output Total 300 / 300 Balance 240 / 240 -190 / -190 Weight last 48 hrs Weight 136.078 kg Physical Exam Const: COMMON NORMALS: no acute distress and patient oriented x3 Resp: COMMON NORMALS: normal respiratory effort, No retractions, No use of accessory muscles and clear to auscultation bilaterally AUSCULTATION: clear to auscultation bilaterally Cardio: COMMON NORMALS: regular rate, regular rhythm, S1 normal heart sound present and S2 normal heart sound present RATE: regular rate RHYTHM: regular rhythm HEART SOUNDS: S1 normal heart sound present and S2 normal heart sound present GI: COMMON NORMALS: Normal to inspection, nondistended, normoactive bowel sounds present and non-tender Extremity: COMMON NORMALS: no pedal edema Neuro: COMMON NORMALS: patient oriented x3 Psych: COMMON NORMALS: mental status grossly normal Data 01/16/23 06:42 01/16/23 06:42 Micro: Microbiology 01/16/23 08:27 Occult Blood (FIT) - Final Stool - Stool Aspirate A&P Assessment and plan (1) Iron deficiency anemia: (2) GI bleed: (3) Mediastinal lymphadenopathy: (4) Lung nodule: (5) Shortness of breath: (6) Fatigue: (7) Weakness: (8) Anemia: Plan Anemia -With Hemoccult positive stools, evidence of iron deficiency anemia highly suspicious for a GI bleed -She is on aspirin and Plavix I am not sure exactly why given she does not have any stents, no history of strokes -Has iron deficiency anemia, will replace -Monitor hemoglobin -Transfuse if less than 7 -Hold aspirin, hold Plavix -DVT prophylaxis, SCDs -Full code Shortness of breath with exertion, likely secondary to anemia -DuoNeb as needed -No history of asthma, no wheezing on exam, no lower extremity edema -Cardiac echo pending -Telemetry monitoring -Serial EKGs serial troponins telemetry monitoring Bilateral large right upper lobe focal airspace opacities, measuring 19 mm in the right upper lobe, highly suspicious nodules, I will have patient follow-up with pulmonary Obesity Plan for today monitor hemoglobin, iron replacement, consult general surgery for EGD, hold aspirin, Plavix, Attestations Medical Necessity Statement*: Patient requires hospitalization, inpatient, for GI bleed, anemia, requiring EGD Coding Level of Care Code Acute Code for Chg Fwd Diagnoses Iron deficiency anemia D50.9 GI bleed K92.2 Mediastinal lymphadenopathy R59.0 Lung nodule R91.1 Shortness of breath R06.02 Fatigue R53.83 Weakness R53.1 Anemia D64.9
[2023-01-16] MEDS: sodium chloride 0.9% 1,000 ML 30 ML IV (13:26)
--- NOTE | 2023-01-16 13:30 | ANES.PREANE2 ---
Pre-Anesthetic Assessment Height/Weight: Height 1.63 m Weight 136.078 kg Temp Pulse Resp BP Pulse Ox O2 Del Method 97.2 F L 69 18 138/49 94 01/16/23 13:14 01/16/23 13:14 01/16/23 13:14 01/16/23 13:14 01/16/23 13:14 01/16/23 13:14 Preop Diagnosis: anemia Operation Date: 01/16/23 12:30 Proposed Procedures p EGD(Not Applicable) - Linnette Antoine MD Familial anesthetic complications: none Was Beta Luis taken within 24 hours: Yes Was Clonidine taken within 24 hours: N/A Last intake: Intake Last Liquid Date 01/16/23 Last Liquid Time 03:00 Last Solid Date 01/16/23 Last Solid Time 03:00 Social No alcohol and No tobacco Exam alert, oriented x 3, clear to auscultation bilaterally and regular rate & rhythm Airway Mallampati: Class III Dentition: other (no teeth) Pulmonary Sleep Apnea CV/HEM Coronary Artery Disease and Hypertension Metabolic Hyperlipidemia and Morbid Obesity [facility] [place] Fibromyalgia Neuropsych Anxiety Anesthetic Plan ASA status: 3 Anesthesia: MAC Risk of > 500 ml blood loss (7ml/kg in children): No Medications/Allergies Home Medications Medication Instructions Recorded Confirmed Last Taken Type aspirin 325 mg tablet 325 mg PO DAILY 10/23/19 01/15/23 01/15/23 History albuterol sulfate 90 mcg/actuation 2 puff inhalation Q6H PRN 07/02/20 01/15/23 Unknown Rx aerosol inhaler (ProAir HFA) Shortness Of Breath #18 grams mupirocin 2 % topical ointment 1 applic topical BID PRN sores #22 10/18/20 01/15/23 Unknown Rx grams ketoconazole 2 % topical cream 1 applic topical BID #60 grams 06/24/21 01/15/23 Unknown Rx cholecalciferol (vitamin D3) 50 50 mcg PO DAILY 90 days #90 caps 07/01/22 01/15/23 01/14/23 Rx mcg (2,000 unit) capsule triamcinolone acetonide 55 mcg 1 spray intranasal DAILY #16.9 mL 07/01/22 01/15/23 Unknown Rx nasal spray aerosol (Nasacort) levocetirizine 5 mg tablet (Xyzal) 5 mg PO DAILY 90 days #90 tabs 08/15/22 01/15/23 01/15/23 Rx nebivolol 10 mg tablet (Bystolic) 10 mg PO DAILY #30 tabs 01/11/23 01/15/23 01/15/23 Rx buspirone 10 mg tablet 10 mg PO BID PRN Anxiety 01/15/23 01/15/23 Unknown History clopidogrel 75 mg tablet 75 mg PO BEDTIME 01/15/23 01/15/23 01/14/23 History cranberry 400 mg capsule 400 mg PO DAILY 01/15/23 01/15/23 01/15/23 History duloxetine 60 mg capsule,delayed 60 mg PO BID 01/15/23 01/15/23 01/15/23 History release famotidine 40 mg tablet 40 mg PO DAILY 01/15/23 01/15/23 01/15/23 History methocarbamol 500 mg tablet 1,000 mg PO BID PRN Pain 01/15/23 01/15/23 Unknown History montelukast 10 mg tablet 10 mg PO DAILY 01/15/23 01/15/23 01/15/23 History Allergies Allergy/AdvReac Type Severity Reaction Status Date / Time codeine Allergy Unknown Verified 01/11/23 13:35 meperidine [From Demerol] Allergy ALGY-Difficulty Verified 01/11/23 13:35 Breathing propoxyphene Allergy Unknown Verified 01/11/23 13:35 [From Darvocet-N] Sulfa (Sulfonamide Allergy Unknown Verified 01/11/23 13:35 Antibiotics) Current Medications Generic Name Dose Route Start Last Admin Trade Name Freq PRN Reason Stop Dose Admin Duloxetine HCl 60 mg 01/15/23 18:33 01/16/23 08:12 Duloxetine 60 Mg Capsule PO 60 mg BID ANNETTE Administration Iron Sucrose 200 mg/ Sodium 110 mls @ 220 mls/hr 01/16/23 07:30 01/16/23 09:06 Chloride IV Infused Q24H ANNETTE Infusion Sodium Chloride 1,000 mls @ 75 mls/hr 01/16/23 07:00 01/16/23 08:12 Sodium Chloride 0.9% IV 75 mls/hr .[id number] ANNETTE Administration Sodium Chloride 1,000 mls @ 30 mls/hr 01/16/23 13:15 01/16/23 13:26 Sodium Chloride 0.9% IV 01/17/23 13:14 30 mls/hr .Q24H ANNETTE Administration Montelukast Sodium 10 mg 01/16/23 09:00 01/16/23 08:12 Montelukast Sodium 10 Mg Tablet PO 10 mg DAILY ANNETTE Administration Pantoprazole Sodium 40 mg 01/15/23 18:33 01/16/23 08:13 Pantoprazole 40 Mg Sdv IVP 40 mg Q12H ANNETTE Administration Sucralfate 1 gm 01/15/23 18:33 01/16/23 08:12 Sucralfate 1 Gm Tablet PO 1 gm Q12H ANNETTE Administration Vitamin D 2,000 unit 01/16/23 09:00 01/16/23 08:12 Cholecalciferol (Vitamin D3) 1,000 Unit Tablet PO 2,000 unit DAILY ANNETTE Administration PFSH Anesthesia Medical History Apnea, sleep Arteriosclerotic heart disease (ASHD) Degenerative arthritis of knee Diverticulosis Fibromyalgia GERD (gastroesophageal reflux disease) Hx of fracture of clavicle Metabolic syndrome Rosacea Seasonal allergies Thrombocytosis Surgical History History of colonoscopy (02/18/20) History of hysterectomy History of knee surgery Hx of amputation Partial R greater toe Hx of angioplasty Family History Father Diabetes COPD (chronic obstructive pulmonary disease) Thyroid condition Mother Hypertension Cancer MOTHER HAS A HISTORY OF KIDNEY CANCER Stroke Brother Diabetes Grandfather Colon cancer paternal Sister Colon cancer, Onset Age: 35 Denies family history of Ovarian cancer Clotting disorder Heart disease Hyperlipidemia Breast cancer Anesthesia complication Bleeding disorder Uterine cancer Social History Smoking and tobacco status: former smoker Quit status (tobacco): has quit using tobacco Year quit tobacco: 1984 Second hand smoke exposure: No Alcohol intake: current Alcohol intake frequency: holidays/special occasions only Alcohol type: wine and hard liquor Lives independently: Yes Household members: significant other Marital status: service: No Current occupational status: employed Current gender identity: Female Special cristofer needs: No Agree to transfusion: Yes Female Reproductive History Date of menopause: 02/14/89 Data Anesthesia 01/16/23 06:42 01/16/23 06:42 Short CBC 01/15/23 01/15/23 01/16/23 Range/Units 12:58 20:29 06:42 WBC 10.0 10.3 H 9.2 (4.0-10.0) 10^3/uL Hgb 8.8 L 8.6 L 8.6 L (11.5-15.3) g/dL Hct 32.1 L 30.6 L 31.2 L (37.0-47.0) % MCV 70.2 L 70.0 L 71.4 L (81-99) fl Plt Count 475 H 432 H 425 H (130-400) 10^3/cmm Neut % (Auto) 63.5 63.7 64.4 % Neut # (Auto) 6.35 6.58 5.95 (1.8-7.7) 10^3/uL BMP 01/15/23 01/16/23 12:58 06:42 Sodium 136 137 Potassium 4.1 4.0 Chloride 102 103 Carbon Dioxide 24 24 BUN 14 14 Creatinine 0.7 0.5 Glucose 120 H 133 H Calcium 8.7 8.5 Cardiac Enzymes 01/15/23 01/15/23 01/15/23 Range/Units 12:58 12:58 14:27 Troponin T Baseline 10 (0-10) ng/L Troponin T 120 Minute 8.82 (0-10) ng/L Delta Troponin T -1.18 L (0-10) ABS# Troponin T Hi Sens 6Hr (0-10) ng/L Troponin T Hi Sens 6Hr Delta (0-12) ng/L NT-Pro-B Natriuret Pep 150 H (0-125) pg/mL 01/15/23 Range/Units 18:25 Troponin T Baseline (0-10) ng/L Troponin T 120 Minute (0-10) ng/L Delta Troponin T (0-10) ABS# Troponin T Hi Sens 6Hr 7.29 (0-10) ng/L Troponin T Hi Sens 6Hr Delta -2.71 L (0-12) ng/L NT-Pro-B Natriuret Pep (0-125) pg/mL Liver Function 01/15/23 Range/Units 12:58 Total Bilirubin 0.3 (0.15-1.2) mg/dL AST 22 (0-32) U/L ALT 17 (0-33) U/L Alkaline Phosphatase 85 (35-105) U/L Albumin 3.7 (3.5-5.2) g/dL Urine 01/15/23 Range/Units 22:13 Urine Color Yellow (Yellow) Urine Appearance Clear (CLEAR) Urine pH 5 (5-7) Ur Specific [place] 1.015 (1.005-1.030) Urine Protein Neg (Negative) Urine Glucose (UA) Norm (Normal) Urine Ketones Negative (Negative) Urine Nitrate Negative (Negative) Urine Bilirubin Neg (Negative) Ur Leukocyte Esterase 1+ H (Negative) Urine RBC None (0-2) /hpf Urine WBC 0-4 H (0-5) /hpf Coags 01/15/23 12:58 D-Dimer 0.49 ABG 01/15/23 16:20 Specimen Type Arterial Sample Site Radial, left ABG pH 7.43 ABG pCO2 36.1 ABG pO2 79.0 L ABG HCO3 24.2 ABG O2 Saturation 97.3 ABG Base Excess 0.1 A-a O2 Gradient 3.4 L O2 Delivery Device Room air FiO2 21.0 Microbiology 01/16/23 08:27 Occult Blood (FIT) - Final Stool - Stool Aspirate Cardiac Studies: No Data to Display
[2023-01-16 13:49] LABS: Basophils # 0.1 10^3/uL (0.0-0.1); Basophils % 1.7 %; Eosinophils # 0.2 10^3/uL (0.0-0.8); Eosinophils % 3.1 %; Hematocrit 30.3 % (37.0-47.0); Hemoglobin 8.5 g/dL (11.5-15.3); Lymphocytes # 1.6 10^3/uL (0.8-4.8); Lymphocytes % 20.3 %; Mean Corpuscular HGB Conc 28.1 g/dL (30.0-36.0); Mean Corpuscular Hemoglobin 19.5 pg (28.0-34.0); Mean Corpuscular Volume 69.7 fl (81-99); Mean Platelet Volume 9.8 fL (7.4-10.4); Monocytes # 0.5 10^3/uL (0.2-0.9); Monocytes % 6.9 %; Neutrophils # 5.15 10^3/uL (1.8-7.7); Neutrophils % 67.5 %; Nucleated Red Blood Cells % 0 %; Platelet Count 420 10^3/cmm (130-400); Red Blood Count 4.35 10^6/uL (4.1-5.3); Red Cell Distribution Width 16.2 % (12.1-15.1); White Blood Count 7.6 10^3/uL (4.0-10.0)
--- NOTE | 2023-01-16 13:58 | PC.NURSE ---
1252 pt off monitor/unit for EGD
--- NOTE | 2023-01-16 14:04 | ANE.PACU2 ---
Inpatient post-anesthesia follow up: Airway intact: Yes Vital signs: Temperature 97.2 F Pulse Rate 80 Respiratory Rate 17 Blood Pressure 128/22 Pulse Oximetry 100 Oxygen Delivery Me thod Nasal Cannula Oxygen Flow Rate 3 Fraction of Inspir ed Oxygen Hydration adequate: Yes Nausea and vomiting: No Pain level: 1 Mental status: Baseline
--- NOTE | 2023-01-16 14:31 | PC.NURSE ---
pt arrived to unit at 1424. VS obtained, monitor applied
--- NOTE | 2023-01-16 15:20 | P.DS_ITS ---
Discharge Providers Date of Admission: 01/15/23 16:39 Date of Discharge: January 16, 2023 Attending Provider at Admission: Christiano Robin MD Attending Provider at Discharge: Christiano Robin MD Primary Care Provider: Veronica Rodríguez MD Diagnoses at Discharge Discharge Diagnosis (1) Iron deficiency anemia: Status: Acute (2) GI bleed: Status: Acute (3) Mediastinal lymphadenopathy: Status: Acute (4) Lung nodule: Status: Acute (5) Shortness of breath: Status: Acute (6) Fatigue: Status: Acute (7) Weakness: Status: Acute (8) Anemia: Status: Acute Reason for Visit Reason for Visit: sob, dizziness Hospital Course Hospital Course Henny Downey is a 67 year old female with a past medical history of sleep apnea, fibromyalgia, GERD, who presents to [facility] due to weakness, fatigue, shortness of breath with exertion.? Patient tells me that for the last few weeks, she has felt increasingly short of breath, short of breath with minimal exertion, she also feels lightheaded and dizzy at times, especially with exertion, she feels more weak and fatigued and tired.? Denies any bloody or black stools, she has never had a EGD, she has had a colonoscopy which was unremarkable, no history of prior anemia.? She is on aspirin and Plavix for CAD, but denies a history of stenting she had an angiogram she tells me roughly 5 years ago which was within normal limits.? I am not sure why he is on dual antiplatelet therapy.? She denies any fevers, no chills.? No cough.? No recent surgery.? No calf pain, no calf swelling.? Does report lightheadedness, no dizz iness, no history of syncope.? Denies any bloody or black stools.? Denies any hemoptysis.? Denies a history of blood transfusions Patient was admitted to [facility] for anemia, with evidence of iron deficiency anemia, Hemoccult positive stools, concerning for slow GI bleed, is on aspirin and Plavix no history of cardiac stenting, no history of strokes. Underwent EGD which showed gastritis, biopsies were taken. On discharge I am going to have her take only aspirin 81 mg. Hold Plavix until she sees general surgery or oncology. Follow-up with general surgery for biopsy results, with the possibility of H. pylori. See her primary care provider this week for recheck hemoglobin. Continue Protonix, Carafate. If she were to develop any bloody or black stools to go emergency room. Avoid NSAIDs. For her shortness of breath, likely secondary anemia Patient was found to have bilateral large right upper lobe focal airspace opacities, measuring 19 mm in the right upper lobe, with mediastinal lymphadenopathy and would have her follow-up with pulmonary, she does have secondhand smoke exposure Physical Exam Const: COMMON NORMALS: no acute distress and patient oriented x3 Resp: COMMON NORMALS: normal respiratory effort, No retractions, No use of accessory muscles and clear to auscultation bilaterally AUSCULTATION: clear to auscultation bilaterally Cardio: COMMON NORMALS: regular rate, regular rhythm, S1 normal heart sound present and S2 normal heart sound present RATE: regular rate RHYTHM: regular rhythm HEART SOUNDS: S1 normal heart sound present and S2 normal heart sound present GI: COMMON NORMALS: Normal to inspection, nondistended, normoactive bowel sounds present and non-tender Extremity: COMMON NORMALS: no pedal edema Neuro: COMMON NORMALS: patient oriented x3 Psych: COMMON NORMALS: mental status grossly normal Discharge Data Studies Completed and Pending Completed Studies During Hospitalization Category Date Time Status CT angio chest PE protcl [id number] Stat Cat Scan 01/15/23 16:23 Completed XR chest 1V portable [id number] Stat Exams 01/15/23 12:38 [place] [id number] Stat Ultrasound 01/15/23 16:42 Completed Pending at discharge Category Date Time Status Pathology: Surgical [PTH] Routine Pth 01/16/23 13:59 Ordered CV. echo complete* [id number] Stat Ultrasound 01/16/23 06:00 Taken Radiology Impressions Chest X-Ray 01/15/23 12:38 IMPRESSION: No acute findings. Chest CTA 01/15/23 16:23 IMPRESSION: 1. Negative for pulmonary embolus. 2. Multiple enlarged mediastinal lymph nodes measuring up to 16 mm, nonspecific. 3. Main pulmonary artery is somewhat prominent which can be a finding of pulmonary hypertension. 4. Several hepatic cysts. 5. Spleen borderline enlarged at 13 cm. 6. Bilateral largely upper lobe focal airspace opacities, measuring up to 19 mm in right upper lobe. Highly suspicious nodule(s). Consider non-emergent PET/CT, or tissue sampling.(Reference: Amanda) 7. Cardiomegaly. 8. Ascending thoracic aorta is somewhat prominent at 3.6 cm. REFERENCES: Amanda Shha, et al. Guidelines for Management of Incidental Pulmonary Nodules Detected on CT Images: From the Fleischner Society 2017. Radiology. 2017;284(1):228-243. Venous Duplex 01/15/23 16:42 IMPRESSION: No evidence of deep vein thrombosis. Laboratory Results WBC 7.6 10^3/uL (4.0-10.0) 01/16/23 13:37 RBC 4.35 10^6/uL (4.1-5.3) 01/16/23 13:37 Hgb 8.5 g/dL (11.5-15.3) L 01/16/23 13:37 Hct 30.3 % (37.0-47.0) L 01/16/23 13:37 MCV 69.7 fl (81-99) L 01/16/23 13:37 MCH 19.5 pg (28.0-34.0) L 01/16/23 13:37 MCHC 28.1 g/dL (30.0-36.0) L 01/16/23 13:37 RDW 16.2 % (12.1-15.1) H 01/16/23 13:37 Plt Count 420 10^3/cmm (130-400) H 01/16/23 13:37 MPV 9.8 fL (7.4-10.4) 01/16/23 13:37 Neut % (Auto) 67.5 % 01/16/23 13:37 Lymph % (Auto) 20.3 % 01/16/23 13:37 [place] % (Auto) 6.9 % 01/16/23 13:37 Eos % (Auto) 3.1 % 01/16/23 13:37 Baso % (Auto) 1.7 % 01/16/23 13:37 Neut # (Auto) 5.15 10^3/uL (1.8-7.7) 01/16/23 13:37 Lymph # (Auto) 1.6 10^3/uL (0.8-4.8) 01/16/23 13:37 [place] # (Auto) 0.5 10^3/uL (0.2-0.9) 01/16/23 13:37 Eos # (Auto) 0.2 10^3/uL (0.0-0.8) 01/16/23 13:37 Baso # (Auto) 0.1 10^3/uL (0.0-0.1) 01/16/23 13:37 Nucleated RBC % (auto) 0 % 01/16/23 13:37 Nucleated RBCs # 0.0 /100WBC 01/16/23 13:37 D-Dimer 0.49 ug/mIFEU (0-0.59) 01/15/23 12:58 Specimen Type Arterial 01/15/23 16:20 Sample Site Radial, left 01/15/23 16:20 ABG pH 7.43 (7.35-7.45) 01/15/23 16:20 ABG pCO2 36.1 mmHg (35-45) 01/15/23 16:20 ABG pO2 79.0 mmHg (80.0-100.0) L 01/15/23 16:20 ABG HCO3 24.2 mmol/L (22-26) 01/15/23 16:20 ABG O2 Saturation 97.3 01/15/23 16:20 ABG Base Excess 0.1 mmol/L (-2.0-2.0) 01/15/23 16:20 Yoan Test Pos 01/15/23 16:20 A-a O2 Gradient 3.4 mmHg (5-10) L 01/15/23 16:20 Hematocrit 29.2 % (37-47) L 01/15/23 16:20 Hgb O2 Saturation 95.1 % (95-100) 01/15/23 16:20 Carboxyhemoglobin 1.5 %THgb (0.4-20.1) 01/15/23 16:20 Methemoglobin 0.6 % (0.4-1.5) 01/15/23 16:20 Total Hemoglobin 9.5 g/dL (12-16) L 01/15/23 16:20 Sodium 142.0 mmol/L (131-143) 01/15/23 16:20 Potassium 3.7 mmol/L (3.5-5.0) 01/15/23 16:20 Glucose 104.0 mg/dL (70-115) 01/15/23 16:20 Ionized Calcium 1.2 mmol/L (1.1-1.4) 01/15/23 16:20 O2 Delivery Device Room air 01/15/23 16:20 FiO2 21.0 % 01/15/23 16:20 [place] Roofer ID Cak 01/15/23 16:20 Sodium 137 mmol/L (136-145) 01/16/23 06:42 Potassium 4.0 mmol/L (3.5-5.1) 01/16/23 06:42 Chloride 103 mmol/L (98-107) 01/16/23 06:42 Carbon Dioxide 24 mmol/L (22-29) 01/16/23 06:42 Anion Gap 14.0 (5-19) 01/16/23 06:42 BUN 14 mg/dL (8-23) 01/16/23 06:42 Creatinine 0.5 mg/dL (0.5-0.9) 01/16/23 06:42 GFR Calculation 123.8 mL/min (90-130) 01/16/23 06:42 Glucose 133 mg/dL (65-115) H 01/16/23 06:42 Estimat Average Glucose 117 01/16/23 06:42 Hemoglobin A1c 5.7 % (4.0-6.0) 01/16/23 06:42 Calculated Osmolality 286 mOsm/kg (285-295) 01/16/23 06:42 Calcium 8.5 mg/dL (8.5-10.5) 01/16/23 06:42 Iron 19 ug/dL (37-145) L 01/15/23 12:58 TIBC 391 mcg/dl 01/15/23 12:58 % Saturation 4.8 % (20-50) L 01/15/23 12:58 Unsat Iron Binding 372 ug/dL (112-347) H 01/15/23 12:58 Ferritin 8 ng/mL (15-150) L 01/15/23 12:58 Total Bilirubin 0.3 mg/dL (0.15-1.2) 01/15/23 12:58 AST 22 U/L (0-32) 01/15/23 12:58 ALT 17 U/L (0-33) 01/15/23 12:58 Alkaline Phosphatase 85 U/L (35-105) 01/15/23 12:58 Troponin T Baseline 10 ng/L (0-10) 01/15/23 12:58 Troponin T 120 Minute 8.82 ng/L (0-10) 01/15/23 14:27 Delta Troponin T -1.18 ABS# (0-10) L 01/15/23 14:27 Troponin T Hi Sens 6Hr 7.29 ng/L (0-10) 01/15/23 18:25 Troponin T Hi Sens 6Hr Delta -2.71 ng/L (0-12) L 01/15/23 18:25 NT-Pro-B Natriuret Pep 150 pg/mL (0-125) H 01/15/23 12:58 Total Protein 6.6 g/dL (6.6-8.7) 01/15/23 12:58 Albumin 3.7 g/dL (3.5-5.2) 01/15/23 12:58 Globulin 2.9 g/dL (1.3-4.6) 01/15/23 12:58 Triglycerides 103 mg/dL (0-150) 01/16/23 06:42 Cholesterol 126 mg/dL (0-200) 01/16/23 06:42 LDL Cholesterol, Calc 68 mg/dL (50-129) 01/16/23 06:42 HDL Cholesterol 37 mg/dL (60-100) L 01/16/23 06:42 LDL/HDL Ratio 1.84 RATIO (0.00-3.22) 01/16/23 06:42 Cholesterol/HDL Ratio 3.41 mg/dL (0.0-4.40) 01/16/23 06:42 Lipase 28 U/L (13-60) 01/15/23 12:58 Vitamin B12 461 pg/mL (232-1245) 01/15/23 12:58 Folate 8.4 ng/mL (4.8-37.3) 01/15/23 12:58 TSH 0.85 uIU/mL (0.27-4.20) 01/16/23 06:42 Urine Color Yellow (Yellow) 01/15/23 22:13 Urine Appearance Clear (CLEAR) 01/15/23 22:13 Urine pH 5 (5-7) 01/15/23 22:13 Ur Specific [place] 1.015 (1.005-1.030) 01/15/23 22:13 Urine Protein Neg (Negative) 01/15/23 22:13 Urine Glucose (UA) Norm (Normal) 01/15/23 22:13 Urine Ketones Negative (Negative) 01/15/23 22:13 Urine Blood Neg (Negative) 01/15/23 22:13 Urine Nitrate Negative (Negative) 01/15/23 22:13 Urine Bilirubin Neg (Negative) 01/15/23 22:13 Urine Urobilinogen Norm mg/dL (Negative) 01/15/23 22:13 Ur Leukocyte Esterase 1+ (Negative) H 01/15/23 22:13 Urine RBC None /hpf (0-2) 01/15/23 22:13 Urine WBC 0-4 /hpf (0-5) H 01/15/23 22:13 Ur Squamous Epith Cells 10-15 /hpf (0-5) H 01/15/23 22:13 Amorphous Sediment Not Reportable 01/15/23 22:13 Urine Bacteria 1+ /hpf (NONE) H 01/15/23 22:13 Vitals Last Vital Signs Temp 97.4 F L 01/16/23 14:37 Pulse 74 01/16/23 14:37 Resp 18 01/16/23 14:37 BP 115/71 01/16/23 14:37 Pulse Ox 97 01/16/23 14:37 O2 Del Method 01/16/23 14:37 O2 Flow Rate 3 01/16/23 14:04 Discharge Plan Discharge Patient Disposition: Home Condition: Stable Prescriptions: New sucralfate 1 gram Tablet 1 g PO Q12H 30 Days Qty: 60 0RF aspirin 81 mg capsule 81 mg PO DAILY 30 Days Qty: 30 0RF pantoprazole [Protonix] 40 mg tablet,delayed release (DR/EC) 40 mg PO BID 30 Days Qty: 60 0RF Continued albuterol sulfate [ProAir HFA] 90 mcg/actuation HFA aerosol inhaler 2 puff INHALATION Q6H PRN (Reason: Shortness Of Breath) Qty: 18 2RF mupirocin 2 % ointment 1 applic topical BID PRN (Reason: sores) Qty: 22 0RF levocetirizine [Xyzal] 5 mg tablet 5 mg PO DAILY 90 Days Qty: 90 1RF nebivolol [Bystolic] 10 mg tablet 10 mg PO DAILY Qty: 30 0RF ketoconazole 2 % cream 1 applic topical BID Qty: 60 2RF cholecalciferol (vitamin D3) 50 mcg (2,000 unit) capsule 50 mcg PO DAILY 90 Days Qty: 90 1RF triamcinolone acetonide [Nasacort] 55 mcg aerosol,spray 1 spray intranasal DAILY Qty: 16.9 3RF Rx Instructions: administer into each nostril methocarbamol 500 mg tablet 1,000 mg PO BID PRN (Reason: Pain) buspirone 10 mg tablet 10 mg PO BID PRN (Reason: Anxiety) montelukast 10 mg tablet 10 mg PO DAILY duloxetine 60 mg capsule,delayed release(DR/EC) 60 mg PO BID cranberry 400 mg Capsule 400 mg PO DAILY Rx Instructions: administer with a meal Held clopidogrel 75 mg tablet 75 mg PO BEDTIME Hold Instructions: Resume on 02/06/23. hold until you see general surgery and oncology Discontinued aspirin 325 mg tablet 325 mg PO DAILY famotidine 40 mg tablet 40 mg PO DAILY Discharge Orders: Discharge Order (Routine); Ordered 01/16/23 Ordered By: Christiano Robin Referrals: Wilmer Thurman DO [Physician] - 2 weeks (biopsy results) DevonrSincere MD [Physician] - 1 month (pulmonary nodule) Jose Benito MD [Staff Physician] - 1 month (fe defeciency) Veronica Rodríguez MD [Primary Care Provider] - 1-3 days Discharge Diet: Regular and Cardiac Discharge Activity: Resume usual activity Patient Instructions: GI Discharge Instructions, Opioid Safety Activity Restrictions/Additional Instructions: - If you develop bloody or black stools please go to the emergency room -Please hold Plavix until you see general surgery, or see hematology -Continue aspirin 81 mg -Continue Protonix, Carafate -Avoid NSAIDs -Iron infusions have been set up -If you develop bloody or black stools please go to emergency room -See your primary care provider this week for recheck hemoglobin hemoglobin discharge 8.5 Discharge Attestations Time Spent in Discharge Care*: greater than 30 min Quality Metrics Clinical Quality Measures [ No reported AMI, CVA or VTE this stay] Coding Level of Care Code 81734 Total time (in minutes) for Discharge: 40 Diagnoses Iron deficiency anemia D50.9 GI bleed K92.2 Mediastinal lymphadenopathy R59.0 Lung nodule R91.1 Shortness of breath R06.02 Fatigue R53.83 Weakness R53.1 Anemia D64.9
--- NOTE | 2023-01-16 17:31 | PC.NURSE ---
IV was removed, educated provided and pt verbalized understanding. wheeled to main entrance and patient left with daughter
== END 2023-01-16 17:10 | disposition home or self-care (01) ==
LOC: ER 16:17 → MEDSURG 17:50
PROVIDERS: Surgery Surgical Critical Care; Admitting Provider Family Medicine; Emergency Provider Emergency Medicine; PCP Family Medicine; Visit Provider Family Medicine
PROC: 0DJ08ZZ Inspection of Upper Intestinal Tract, Via Natural or Artificial Opening Endoscopic (ICD-10-PCS; CPT 43235; principal; 2023-01-16 12:30)
DX: K29.51 Unspecified chronic gastritis with bleeding (principal); K31.1 Adult hypertrophic pyloric stenosis; D50.9 Iron deficiency anemia, unspecified; R06.02 Shortness of breath; R59.0 Localized enlarged lymph nodes; R91.1 Solitary pulmonary nodule; I10 Essential (primary) hypertension; I25.10 Atherosclerotic heart disease of native coronary artery without angina pectoris; E66.01 Morbid (severe) obesity due to excess calories; Z68.43 Body mass index [BMI] 50.0-59.9, adult; D75.839 Thrombocytosis, unspecified; Z79.82 Long term (current) use of aspirin; Z79.02 Long term (current) use of antithrombotics/antiplatelets; Z87.891 Personal history of nicotine dependence; Z88.2 Allergy status to sulfonamides
CPT/HCPCS: 36415; 36600; 43239; 71045; 71275; 80048; 80051; 80053; 80061; 81001; 82274; 82330; 82607; 82728; 82746; 82805; 83036; 83540; 83550; 83690; 83880; 84443; 84484; 85025; 85378; 88305; 93005; 93306; 93970; 94664; 96365; 96375; 97110; 97161; 97165; 99285; C9113; G0378; J1756; J2704; J7030; Q9967

== ENCOUNTER → 2023-01-23 14:58 | Outpatient (BNVA) | payer MEDICARE, OTHER, SELFPAY | PROVIDERS: PCP Family Medicine; Visit Provider Family Medicine | DX: D64.9 Anemia, unspecified (principal) | CPT/HCPCS: 85025 ==

== ENCOUNTER → 2023-01-25 10:56 | Day surgery (SDC) | payer MEDICARE, OTHER, SELFPAY ==
[2023-01-25] MEDS: iron sucrose 200 MG in sodium chloride 0.9% (100 ml) 100 ML 220 MG IV (11:08)
[2023-01-25 11:34] VITALS: BP 136/65; PULSE 70; RESP 18; TEMP 35.7; O2SAT 100
== END ==
PROVIDERS: PCP Family Medicine; Visit Provider Family Medicine
DX: D64.9 Anemia, unspecified (principal); Z79.899 Other long term (current) drug therapy
CPT/HCPCS: 96365; J1756

== ENCOUNTER → 2023-01-30 14:17 | Outpatient (BNVA) | payer MEDICARE, OTHER, SELFPAY | PROVIDERS: PCP Family Medicine; Visit Provider Family Medicine | DX: D64.9 Anemia, unspecified (principal); E55.9 Vitamin D deficiency, unspecified; M79.7 Fibromyalgia | CPT/HCPCS: 82306; 85025 ==

== ENCOUNTER 2023-02-01 08:06 | Oncology outpatient (recurring) (ONCR) | payer MEDICARE, OTHER, SELFPAY ==
[2023-02-02 17:26] LABS: Alternaria Alternata (M6) Ige <0.10 kU/L; Alternaria Class 0; Bermuda Class 0; Bermuda Grass (G2) Ige <0.10 kU/L; Cat Dander (E1) Ige <0.10 kU/L; Cat Dander Class 0; Common Ragweed (Short) (W1) Ig <0.10 kU/L; D. Farinae Class 0; Dermatophagoides Class 0; Dermatophagoides Farinae (D2) <0.10 kU/L; Dermatophagoides Pteronyssinus <0.10 kU/L; Dog Dander (E5) Ige <0.10 kU/L; Dog Dander Class 0; Elm (T8) Ige <0.10 kU/L; Elm Class 0; English Plantain (W9) Ige <0.10 kU/L; English Plantain Class 0; House Dust (Greer) (H1) Ige <0.10 kU/L; House Dust (Hollister- Stier) <0.10 kU/L; House Dust Class 0; Immunoglobulin E 96 kU/L (<OR=114); Johnson Grass (G10) Ige <0.10 kU/L; Johnson Grass Cl 0; June Grass Class 0; June Grass(Kentucky Blue) (G8) <0.10 kU/L; Lamb'S Quarters (Goose Foot) <0.10 kU/L; Lamb'S Quarters Class 0; Maple (Box Elder) (T1) Ige <0.10 kU/L; Maple Class 0; Meadow Fescue (G4) Ige <0.10 kU/L; Meadow Fescue Class 0; Mucor Racemosus Class 0; Oak (T7) Ige <0.10 kU/L; Oak Class 0; Orchard Grass (Cocksfoot) (G3) <0.10 kU/L; Penicillium Class 0; Penicillium Notatum (M1) Ige <0.10 kU/L; Perennial Rye Grass (G5) Ige <0.10 kU/L; Perennial Rye Grass Class 0; Ragweeed Class 0; Rough Marsh Elder (W16) Ige <0.10 kU/L; Rough Marsh Elder Class 0; Sweet Vernal Class 0; Sweet Vernal Grass (G1) Ige <0.10 kU/L; Timothy Grass (G6) Ige <0.10 kU/L; Timothy Grass Class 0
[2023-02-03 19:45] LABS: Aspergillus Fumigatus, Igg Ab, 11.5 mg/L (<=102)
== END 2023-02-05 23:59 | disposition home or self-care (01) ==
PROVIDERS: Internal Medicine Pulmonary Disease; PCP Family Medicine; Visit Provider Internal Medicine Medical Oncology
DX: D50.0 Iron deficiency anemia secondary to blood loss (chronic); K29.70 Gastritis, unspecified, without bleeding; B96.81 Helicobacter pylori [H. pylori] as the cause of diseases classified elsewhere; D75.839 Thrombocytosis, unspecified; R91.1 Solitary pulmonary nodule; R59.0 Localized enlarged lymph nodes; E66.01 Morbid (severe) obesity due to excess calories; Z68.43 Body mass index [BMI] 50.0-59.9, adult; Z87.891 Personal history of nicotine dependence
CPT/HCPCS: 36415; 82785; 86003; 96365; 99203; 99204; 99205; J1756

== ENCOUNTER → 2023-02-01 09:50 | Day surgery (SDC) | payer MEDICARE, SELFPAY ==
[2023-02-01] MEDS: iron sucrose 200 MG in sodium chloride 0.9% (100 ml) 100 ML 220 MG IV (10:16)
[2023-02-01 10:19] VITALS: BP 120/52; PULSE 64; RESP 18; TEMP 36.1; O2SAT 99
== END ==
PROVIDERS: PCP Family Medicine; Visit Provider Family Medicine
DX: D64.9 Anemia, unspecified (principal); Z79.899 Other long term (current) drug therapy
CPT/HCPCS: 96365; J1756

== ENCOUNTER → 2023-02-06 13:23 | Outpatient (BNVA) | payer MEDICARE, SELFPAY | PROVIDERS: PCP Family Medicine; Visit Provider Internal Medicine Medical Oncology | DX: D50.9 Iron deficiency anemia, unspecified (principal) | CPT/HCPCS: 85025 ==

== ENCOUNTER → 2023-02-08 09:48 | Day surgery (SDC) | payer MEDICARE, OTHER, SELFPAY ==
[2023-02-08] MEDS: iron sucrose 200 MG in sodium chloride 0.9% (100 ml) 100 ML 220 MG IV (10:10)
[2023-02-08 10:20] VITALS: BP 130/59; PULSE 76; RESP 18; TEMP 36.1; O2SAT 96
== END ==
PROVIDERS: PCP Family Medicine; Visit Provider Family Medicine
DX: D64.9 Anemia, unspecified (principal); Z79.899 Other long term (current) drug therapy
CPT/HCPCS: 96365; J1756

== ENCOUNTER 2023-02-11 05:55 | Outpatient (CLI) | payer MEDICARE, OTHER, SELFPAY ==
--- NOTE | 2023-02-11 09:30 | PETR_ITS ---
PROCEDURE INFORMATION: Exam: PET/CT Skull Base to Mid-thigh Exam date and time: 02/11/2023 9:58 AM Age: 67 years old Clinical indication: Condition or disease; Condition/disease: Lung nodule LABS AND CLINICAL REPORTS: Glucose: 114 mg/dl Treatment strategy for malignancy (PET staging): Initial Staging (PI) TECHNIQUE: Imaging protocol: Following at least four-hour fasting and following the injection of radiopharmaceutical, low dose CT images were obtained. Then, PET images were obtained. Attenuation corrected images were constructed using the CT scan. Fused images of PET and CT were reviewed. The standardized uptake values (SUV) reported below are maximum values within a region of interest, expressed in gm/ml. Exam includes orbital meatal line to mid-thigh. Radiopharmaceutical: 14.85 mCi F-18 FDG (Fluorodeoxyglucose), IV. Time of imaging post radiopharmaceutical administration: 1 hour Injection site: Left hand COMPARISON: CT angio chest PE prot [id number] 01/15/2023 4:43 PM FINDINGS: Brain: Visualized brain has normal physiologic uptake. Pharynx: No abnormal uptake. Larynx: No abnormal uptake. Thyroid: Punctate calcifications in the thyroid gland are noted. No abnormal uptake. Lungs, pleura and trachea: A spiculated nodule in the posterior right lung apex with an overall measurement of approximately 2.0 x 3.2 cm on series 3, image 40, SUV max 3.2. Areas of additional pleural based spiculated density in the left lung apex are present for example medially measuring approximately 1.9 cm in diameter on series 3, image 38, SUV max 3.0. No additional areas of abnormal uptake within the lungs are noted. A region of patchy nodular density adjacent to the major fissure in the right lower lobe on the comparison CT is less conspicuous and without abnormal uptake on CT series 3, image 53. Heart: Normal physiologic uptake. Mediastinal space: No abnormal uptake. Liver: No abnormal uptake. There are non radiotracer avid low-density lesions in the liver measuring 1.8 cm in the left lobe on series 3, image 72 and measuring 1.4 cm in diameter in the right lobe on series 3, image 76. Gallbladder and bile ducts: No abnormal uptake. Pancreas: No abnormal uptake. Spleen: No abnormal uptake. Adrenal glands: No abnormal uptake. Kidneys and ureters: Normal physiologic uptake. Stomach and bowel: Bowel uptake appears physiologic. Reproductive: The uterus is not identified, likely surgically absent. No abnormal uptake. Vasculature: No abnormal uptake. Coronary artery atherosclerotic calcifications are noted. Diffuse atherosclerotic changes are noted. Lymph nodes: Clustered radiotracer avid right supraclavicular lymph nodes are identified for example on series 3, image 31 measuring up to 2.2 x 1.1 cm SUV max 5.3. Prominent radiotracer avid mediastinal lymph nodes present. Examples: Right paratracheal space on series 3, image 44 measuring 2.8 x 1.9 cm, SUV max 6.8; subcarinal space measuring 2.7 x 1.7 cm on series 3, image 52, SUV max 7.1 and in the anterior pericardial fat measuring 3.6 x 1.0 cm on series 3, image 44, SUV max 6.4. Abnormal uptake within the left hilar region is noted, SUV max 4.4 on PET series 4, image 54. Evaluation of this region is limited without intravenous contrast however this uptake appears to be within a lymph node or cluster of lymph nodes on CT series 3, image 54 measuring 2.5 x 1.7 cm. Prominent portacaval lymph nodes are noted for example measuring 2.1 cm in diameter on series 3, image 85, SUV max 4.6. Bones/joints: No abnormal uptake in the visualized axial and appendicular skeleton. Vlmv-pl-iwczreco degenerative vertebral body spondylosis is noted. An old fracture of the right clavicle is identified. Soft tissues: No abnormal uptake in the visualized head, neck, chest, abdomen, pelvis, and extremities. METRICS: Mediastinal blood pool: SUV max 3.7 Liver uptake: SUV max 5.2, SUV mean 3.5 [facility] INITIAL [id number] IMPRESSION: 1. Spiculated nodular densities in the upper lobes are noted with mild uptake, greatest in the dominant lesion in the right lung apex (SUV max 3.2). Although this uptake is less than that of mediastinal blood pool activity which favors a benign infectious or inflammatory etiology, neoplastic involvement cannot be entirely excluded. 2. Radiotracer avid right supraclavicular, mediastinal and left hilar lymphadenopathy is similar which may be related to inflammatory, infectious or neoplastic involvement. 3. Non radiotracer avid low-density lesions in the liver, statistically representing benign cysts or hemangiomas. 4. Additional nonurgent findings as detailed above.
== END 2023-02-11 05:56 | disposition home or self-care (01) ==
LOC: RAD 02-13 05:55
PROVIDERS: PCP Family Medicine; Visit Provider Internal Medicine Pulmonary Disease
DX: R91.1 Solitary pulmonary nodule (principal)
CPT/HCPCS: 78815; A9552

== ENCOUNTER 2023-02-14 07:04 | Outpatient (CLI) | payer MEDICARE, OTHER, SELFPAY ==
[2023-02-14 07:15] VITALS: BP 107/69
== END 2023-02-14 07:05 | disposition home or self-care (01) ==
LOC: RT 07:05
PROVIDERS: PCP Family Medicine; Visit Provider Internal Medicine Pulmonary Disease
DX: R06.00 Dyspnea, unspecified (principal); F17.210 Nicotine dependence, cigarettes, uncomplicated
CPT/HCPCS: 94010; 94618; 94729

== ENCOUNTER → 2023-02-15 09:49 | Day surgery (SDC) | payer MEDICARE, OTHER, SELFPAY ==
[2023-02-15] MEDS: iron sucrose 200 MG in sodium chloride 0.9% (100 ml) 100 ML 220 MG IV (10:24)
[2023-02-15 10:30] VITALS: BP 148/70; PULSE 75; RESP 18; TEMP 36.3; O2SAT 98
== END ==
PROVIDERS: PCP Family Medicine; Visit Provider Family Medicine
DX: D64.9 Anemia, unspecified (principal); Z79.899 Other long term (current) drug therapy
CPT/HCPCS: 96365; J1756

== ENCOUNTER → 2023-02-20 14:07 | Outpatient (BNVA) | payer MEDICARE, OTHER, SELFPAY | PROVIDERS: PCP Family Medicine; Visit Provider Family Medicine | DX: D50.9 Iron deficiency anemia, unspecified (principal) | CPT/HCPCS: 85025 ==

== ENCOUNTER 2023-02-21 05:46 | Day surgery (SDC) | payer MEDICARE, OTHER, SELFPAY ==
[2023-02-17 08:21] VITALS: BMI 51.2
[2023-02-21] VITALS (10 sets, daily range): BP systolic 83–127; BP diastolic 61–77; PULSE 62–92; RESP 18–25; TEMP 36.1–36.4; O2SAT 93–100
[2023-02-21] MEDS: sodium chloride 0.9% 1,000 ML 30 ML IV (06:10)
--- NOTE | 2023-02-21 07:12 | P.ANESASSM_ITS ---
Pre-Anesthetic Assessment Height/Weight: Height 1.63 m Weight 135.624 kg Temp Pulse Resp BP Pulse Ox O2 Del Method 97.1 F L 72 18 127/76 98 Room Air 02/21/23 06:15 02/21/23 06:15 02/21/23 06:15 02/21/23 06:15 02/21/23 06:15 02/21/23 06:15 Preop Diagnosis: lung nodule Operation Date: 02/21/23 07:00 Proposed Procedures p BRONCH,EBUS, 83280, 31967, 89492, 06349, 18275, 82517, 51633, 66422, 13227, 78159, 52200, 96174, 05461,R59.0(Not Applicable) - Sincere Escamilla MD s Bronch/Ebus(Not Applicable) - Sincere Escamilla MD Familial anesthetic complications: pt states she woke up with paralytic Was Beta Luis taken within 24 hours: N/A Was Clonidine taken within 24 hours: N/A Last intake: Intake Last Liquid Date 02/20/23 Last Liquid Time 21:00 Last Solid Date 02/20/23 Last Solid Time 21:00 Last Intake: 21:00 Social No alcohol and No tobacco (former smoker) Exam alert and oriented x 3 Airway Submandibular: within normal limits Cervical ROM: within normal limits Mallampati: Class I Dentition: false (uppers) History/ROS No significant history except as noted Pulmonary Exertional Dyspnea, Sleep Apnea (no CPAP) and Shortness of Breath CV/HEM Hypertension None reported Hepatic None reported GI Gastroesophageal Reflux Disease Metabolic Morbid Obesity [facility]/[place] None reported Neuropsych None reported Anesthetic Plan ASA status: 3 Anesthesia: Anesthesia Evaluation and General Risk of > 500 ml blood loss (7ml/kg in children): No Medications/Allergies Home Medications Medication Instructions Recorded Confirmed Last Taken Type mupirocin 2 % topical ointment 1 applic topical BID PRN sores #22 10/18/20 02/21/23 02/15/23 Rx grams cholecalciferol (vitamin D3) 50 50 mcg PO DAILY 90 days #90 caps 07/01/22 02/21/23 02/20/23 Rx mcg (2,000 unit) capsule buspirone 10 mg tablet 10 mg PO BID PRN Anxiety 01/15/23 02/21/23 02/20/23 History clopidogrel 75 mg tablet 75 mg PO BEDTIME 01/15/23 02/21/23 02/15/23 History cranberry 400 mg capsule 400 mg PO DAILY 01/15/23 02/21/23 02/20/23 History duloxetine 60 mg capsule,delayed 60 mg PO BID 01/15/23 02/21/23 02/20/23 History release methocarbamol 500 mg tablet 1,000 mg PO BID PRN Pain 01/15/23 02/21/23 4 Days Ago History ~02/17/23 albuterol sulfate 90 mcg/actuation 2 puff inhalation Q6H PRN 01/23/23 02/21/23 02/15/23 Rx aerosol inhaler (ProAir HFA) Shortness Of Breath #18 grams triamcinolone acetonide 55 mcg 1 spray intranasal DAILY #16.9 mL 01/26/23 02/21/23 3 Days Ago Rx nasal spray aerosol (Nasacort) ~02/18/23 ketoconazole 2 % topical cream 1 applic topical BID PRN Itching 02/01/23 02/21/23 02/15/23 History pantoprazole 40 mg tablet,delayed 40 mg PO BID 14 days #28 tabs 02/01/23 02/21/23 02/20/23 Rx release (Protonix) fluticasone propionate 115 2 puff inhalation BID #12 grams 02/02/23 02/21/23 3 Days Ago Rx mcg-salmeterol 21 mcg/actuation ~02/18/23 HFA inhaler (Advair HFA) nebivolol 10 mg tablet (Bystolic) 10 mg PO DAILY 02/17/23 02/21/23 02/20/23 History levocetirizine 5 mg tablet 5 mg PO DAILY 02/21/23 02/21/23 02/20/23 History montelukast 10 mg tablet 10 mg PO DAILY 02/21/23 02/21/23 02/20/23 History Allergies Allergy/AdvReac Type Severity Reaction Status Date / Time codeine Allergy Unknown Verified 02/21/23 06:08 meperidine [From Demerol] Allergy ALGY-Difficulty Verified 02/21/23 06:08 Breathing propoxyphene Allergy Unknown Verified 02/21/23 06:08 [From Darvocet-N] Sulfa (Sulfonamide Allergy Unknown Verified 02/21/23 06:08 Antibiotics) Current Medications Generic Name Dose Route Start Last Admin Trade Name Niya PRN Reason Stop Dose Admin Sodium Chloride 1,000 mls @ 30 mls/hr 02/21/23 06:00 02/21/23 06:10 Sodium Chloride 0.9% IV 02/22/23 05:59 30 mls/hr .Q24H ANNETTE Administration PFSH Anesthesia Medical History (Updated 02/02/23 @ 07:02 by Santana Reese MD) Anxiety and depression Apnea, sleep Arteriosclerotic heart disease (ASHD) Coronary artery spasm Degenerative arthritis of knee Diverticulosis Fibromyalgia GERD (gastroesophageal reflux disease) Helicobacter pylori gastritis Hx of fracture of clavicle Iron deficiency anemia Metabolic syndrome Pap smear of vagina with ASC-US Rosacea Seasonal allergies Thrombocytosis Vitamin D deficiency Surgical History (Updated 02/02/23 @ 06:37 by Santana Reese MD) History of colonoscopy (02/18/20) History of hysterectomy History of knee surgery History of open reduction and internal fixation (ORIF) procedure For right clavicle fracture Hx of amputation Partial R greater toe Hx of angioplasty Family History Father Diabetes COPD (chronic obstructive pulmonary disease) Thyroid condition Mother Hypertension Cancer MOTHER HAS A HISTORY OF KIDNEY CANCER Stroke Brother Diabetes Grandfather Colon cancer paternal Sister Colon cancer, Onset Age: 35 Denies family history of Ovarian cancer Clotting disorder Heart disease Hyperlipidemia Breast cancer Anesthesia complication Bleeding disorder Uterine cancer Social History Smoking and tobacco status: former smoker Quit status (tobacco): has quit using tobacco Year quit tobacco: 1984 Former quit date comment: 1 ppd X 10 years Second hand smoke exposure: No Alcohol intake: current Alcohol intake frequency: holidays/special occasions only Alcohol type: wine and hard liquor Substance/Drug Use: never Lives independently: Yes Household members: significant other Marital status: service: No Current occupational status: employed Current gender identity: Female Special cristofer needs: No Agree to transfusion: Yes Female Reproductive History Date of menopause: 11/22/88 Data Anesthesia Cardiac Studies: Echocardiogram 01/16/23
--- NOTE | 2023-02-21 07:14 | W.PM.OPSUD ---
Surgery/Procedure H&P Update DATE OF PROCEDURE: February 21, 2023 DATE H&P PERFORMED: 02/01/23 H&P UPDATE INFORMATION: I have reviewed H&P completed within last 30 days, I have examined patient prior to procedure, Changes to prior documentation as noted here and H&P is in [facility] EMR on date indicated CHANGES TO PREVIOUS DOCUMENTATION: Patient had a PET CT scan performed 02/11/2023: Reported spiculated nodule posterior right lung apex overall measurement 2 x 3.2 cm SUV max 3.2 (Mediastinal blood pool, SUV max 3.7); There are clustered radiotracer avid right supraclavicular lymph nodes measuring 2.2 x 1.1 SUV max 5.3. Prominent radiotracer avid mediastinal lymph nodes. Right paratracheal 2.8 x 1.9 SUV max 6.8; subcarinal space measuring 2.7 x 1.7 cm SUV max 7.1: Abnormal uptake in the left hilar region SUV max 4.4. PRIMARY INDICATION FOR PROCEDURE: PET avid mediastinal and hilar lymph nodes-EBUS guided biopsies to rule out underlying malignancy PLANNED PROCEDURE: Operation Date: 02/21/23 07:00 Proposed Procedures p BRONCH,EBUS, 03844, 40962, 79958, 95924, 74450, 09915, 57799, 04773, 18302, 11221, 26409, 91511, 68827,R59.0(Not Applicable) - Sincere Escamilla MD s Bronch/Ebus(Not Applicable) - Sincere Escamilla MD
[2023-02-21] MEDS: lidocaine 1% INJ 10 mL (per mL) XX (08:27)
[2023-02-21 08:29] LABS: Apprearance, Bronch Wash Cloudy (CLEAR); Bronch Source Right Upper Lobe; Color, Bronc Wash Colorless; Cyto Order Verification Order Verified; PATH Referral Yes
--- NOTE | 2023-02-21 09:31 | PM.OP ---
Operative Report Date of procedure: February 21, 2023 Pre-op diagnosis: Preop Diagnosis hilar and mediastinal lymphadenopathy-rule out malignancy Post-op diagnosis: same Procedure done: 50250 Dx Bronchoscope w/BAL 15480 Bronchoscopy w/ therapeutic aspiration of the tracheobronchial tree (clearance of airway secretions, removal of mucus plugs) 42336 EBUS Sampling >=3 nodes Surgeon: Sincere Escamilla MD, [facility] Brief History: 67-year old female with PMH morbid obesity, fibromyalgia, GERD, allergic sinusitis, hypertension, hyperlipidemia, FERNANDO, comes to pulmonary clinic as a hospital discharge follow-up. Patient is a former smoker with hx of 1 ppd X 10 years, Quit in 1984.? She does not use albuterol inhaler regularly. Reports SOB with exertion and wheezing. Denies any significant coughing. During hospital admission CTA 01/15/2023 showed multiple enlarged mediastinal lymph nodes measuring up to 16 mm.? There are bilateral largely upper lobe focal airspace opacities measuring 19 mm in the right upper lobe looking suspicious.? There are several hepatic cysts and the splenomegaly. Subsequent PET CT scan performed 02/11/2023 reported spiculated nodule posterior right lung apex overall measurement 2 x 3.2 cm SUV max 3.2 (Mediastinal blood pool, SUV max 3.7); There are clustered radiotracer avid right supraclavicular lymph nodes measuring 2.2 x 1.1 SUV max 5.3.? Prominent radiotracer avid mediastinal lymph nodes.? Right paratracheal 2.8 x 1.9 SUV max 6.8; subcarinal space measuring 2.7 x 1.7 cm SUV max 7.1: Abnormal uptake in the left hilar region SUV max 4.4. There is somewhat prominent main pulmonary artery on CT chest but her echocardiogram showed pulmonary artery systolic pressure 17 with normal RV size and systolic function. Today as she is scheduled for bronchoscopic evaluation as well as biopsies of endobronchial ultrasound-guided mediastinal/hilar lymph nodes Procedure: 17821 Dx Bronchoscope w/BAL 48634 Bronchoscopy w/ therapeutic aspiration of the tracheobronchial tree (clearance of airway secretions, removal of mucus plugs) 79091 EBUS Sampling >=3 nodes Indication: PET active mediastinal/hilar lymph nodes-rule out Malignancy Anesthesia: General anesthesia. Local anesthesia: The allison in the right and left mainstem bronchi were anesthetized with 1% lidocaine, 3 mL. Description of the procedure: The procedure was explained to the patient and the consent was obtained. The patient was brought to the OR. The patient underwent induction for general anesthesia and endotracheal tube was placed. The bronchoscope was advanced through the ET tube. The distal trachea was visualized. Tracheal mucosa appeared normal, no endotracheal lesion was seen. The allison was sharp. 1 mL each of 1% lidocaine was instilled in the trachea the right and left mainstem bronchi for local anesthesia. In a systematic manner bilateral bronchial tree was then examined. The bronchoscope was advanced into the left mainstem bronchus. The mucosa appeared normal with no endobronchial lesions. The left upper lobe, and lingula were examined up to the third subsegmental level and no abnormalities were identified. Mucosa of left upper lobe and lingula appeared normal with no endobronchial lesion. There were clear secretions which were suctioned right away(50243). The bronchoscope was then introduced into the right mainstem bronchus. The right upper lobe, right middle lobe and right lower lobe bronchi were examined up to the third subsegmental level and no abnormalities were identified. The mucosa appeared normal with no endobronchial lesions, active bleeding or mucous plugs.There were clear secretions which were suctioned right away(27940). BAL was taken from right upper lobe. Bronchoscope was retracted and endobronchial ultrasound (14639 ) was introduced. Identified a lymph nodes at station 4R, station 7 and station 4L. Using tvxv-jrqqzf-zkdigbtd were taken from all 3 lymph node stations (25958); there was some evidence of bleeding which is controlled with instillation of cold saline. After making sure there is no active bleeding, bronchoscope retracted and procedure terminated. Samples: Endobronchial ultrasound guided wjay-ehqfnd-brouqkve were taken from all 3 lymph node stations (05961) A. Station 4R : touch prep -pathology reported negative for malignancy; rest of the material were placed in formalin for histopathology; 1 pass from 4R was placed in RPMI to rule out lymphoma; 1 pass from 4R was placed in sterile cup for tissue culture B. Station 7 : touch prep -pathology reported negative for malignancy; rest of the material were placed in formalin for histopathology C. Station 4L : touch prep -pathology reported seeing atypical clusters; rest of the material were placed in formalin for histopathology 1. Bronchoalveolar lavage (55572) was performed after wedging the bronchoscope at the entrance of occluded right upper lobe. 30 mL of saline was instilled, fluid return was 10 mL. Bronchoalveolar lavage specimen was sent for cell count and differential, gram stain and culture, cytology Complications: None.The patient was extubated and brought to the PACU in stable condition. Disposition: Patient can be discharged home in stable condition. Pt and her daughter are aware that I am going to call them to update final biopsy results once available. Related Problem List Diagnoses (1) Mediastinal lymphadenopathy:
[2023-02-21 10:47] LABS: Total Cells Counted Bronch 200
--- NOTE | 2023-02-21 14:49 | ANE.PACU2 ---
Inpatient post-anesthesia follow up: Airway intact: Yes Vital signs: Temperature 97.5 F Pulse Rate 62 Respiratory Rate 18 Blood Pressure 97/77 Pulse Oximetry 95 Oxygen Delivery Me thod Room Air Oxygen Flow Rate Fraction of Inspir ed Oxygen Hydration adequate: Yes Nausea and vomiting: No Pain level: 1 Mental status: Baseline
[2023-02-22 13:34] LABS: Leukemia Profile (BBPL) See Report; Lymphoma Profile (BBPL) See Report
== END 2023-02-21 09:47 | disposition home or self-care (01) ==
PROVIDERS: PCP Family Medicine; Visit Provider Internal Medicine Pulmonary Disease
PROC: 0BJ08ZZ Inspection of Tracheobronchial Tree, Via Natural or Artificial Opening Endoscopic (ICD-10-PCS; CPT 31622; principal; 2023-02-21 07:00)
PROC: BB4BZZZ Ultrasonography of Pleura (ICD-10-PCS; 2023-02-21 07:00)
DX: R59.0 Localized enlarged lymph nodes (principal); Z87.891 Personal history of nicotine dependence; R06.02 Shortness of breath; G47.30 Sleep apnea, unspecified; K21.9 Gastro-esophageal reflux disease without esophagitis; E66.01 Morbid (severe) obesity due to excess calories; Z68.43 Body mass index [BMI] 50.0-59.9, adult; Z79.02 Long term (current) use of antithrombotics/antiplatelets; F41.9 Anxiety disorder, unspecified; F32.A Depression, unspecified
CPT/HCPCS: 31624; 31645; 31653; 80503; 87070; 87176; 87205; 88112; 88184; 88185; 88305; 88312; 88342; 89050; J1100; J1200; J2250; J2405; J2704; J3010; J3490; J7030

== ENCOUNTER → 2023-03-15 08:46 | Outpatient (BNVA) | payer MEDICARE, OTHER, SELFPAY | PROVIDERS: PCP Family Medicine; Visit Provider Family Medicine | DX: D50.9 Iron deficiency anemia, unspecified (principal) | CPT/HCPCS: 82728; 83550; 85025 ==

== ENCOUNTER 2023-03-17 08:57 | Oncology outpatient (recurring) (ONCR) | payer MEDICARE, OTHER, SELFPAY | END 2023-04-07 23:59 | disposition home or self-care (01) | PROVIDERS: PCP Family Medicine; Visit Provider Internal Medicine Medical Oncology | DX: D50.9 Iron deficiency anemia, unspecified (principal); Z79.899 Other long term (current) drug therapy | CPT/HCPCS: 85025; 99213 ==

== ENCOUNTER → 2023-03-30 08:07 | Outpatient (BNVA) | payer MEDICARE, OTHER, SELFPAY | PROVIDERS: PCP Family Medicine; Referring Provider Dermatology; Visit Provider Orthopaedic Surgery | DX: M48.062 Spinal stenosis, lumbar region with neurogenic claudication (principal) | CPT/HCPCS: 72110; 99204 ==

== ENCOUNTER → 2023-03-31 07:18 | Outpatient (BNVA) | payer MEDICARE, OTHER, SELFPAY | PROVIDERS: PCP Family Medicine; Visit Provider Student in an Organized Health Care Education/Training Program | DX: M17.0 Bilateral primary osteoarthritis of knee (principal) | CPT/HCPCS: 20610; 99204; J3301 ==

== ENCOUNTER → 2023-03-31 07:37 | Outpatient (BNVA) | payer MEDICARE, OTHER, SELFPAY | PROVIDERS: PCP Family Medicine; Visit Provider Student in an Organized Health Care Education/Training Program | DX: M17.0 Bilateral primary osteoarthritis of knee (principal) | CPT/HCPCS: 20610; 73560; 73565; 99204; J3301 ==

== ENCOUNTER 2023-04-20 08:37 | Outpatient (CLI) | payer MEDICARE, OTHER, SELFPAY ==
--- NOTE | 2023-04-20 08:45 | MR_ITS ---
WS: [id number] MRI LUMBAR SPINE NONCONTRAST TECHNIQUE: Sagittal T1, T2 and STIR imaging. Axial T1 and T2 imaging. CLINICAL INFORMATION: back pain COMPARISON: None. FINDINGS: Mild lumbar curve. No acute compression. No high-grade central canal stenosis. Hemangioma L3 vertebra l body. No acute compression fractures. L1-L2: Mild annular bulging with slight effacement of the ventral thecal sac. Mild facet arthropathy. Spinal canal and foramen are patent. L2-L3: Mild annular bulging. Slight effacement of the ventral thecal sac. Mild facet arthropathy. Spi nal canal and foramen are patent. L3-L4: Minimal disc bulging. Mild facet arthropathy. Mild LEFT and no significant RIGHT foraminal clary rowing. Spinal canal is patent. L4-L5: Slight anterolisthesis L4 on L5. Mild disc bulging with impingement on the RIGHT subarticular recess and exiting RIGHT L4 nerve root. RIGHT foraminal protrusion impinges the exiting RIGHT L4 nerv e root with mild to moderate RIGHT foraminal narrowing. LEFT foramen is patent. Moderate facet arthro papo. L5-S1: Mild annular bulging with slight effacement of ventral thecal sac. Moderate facet arthropathy. Mild LEFT and no significant RIGHT foraminal narrowing. Bilateral renal cysts larger on the RIGHT measuring 2.6 cm. Visualized pelvic bony structures: Normal. Paravertebral soft tissues: Normal. MR/MR lumbar spine wo con* [id number] IMPRESSION: 1. Mild lumbar curve. No acute compression. No high-grade central canal stenos is. 2. RIGHT foraminal protrusion L4-L5 with impingement on the exiting RIGHT L4 n erve root. Mild to moderate RIGHT foraminal narrowing. Recommend correlation fo r RIGHT L4 nerve root symptoms. 3. Tiny LEFT foraminal protrusion L3-L4 with mild LEFT foraminal narrowing. 4. Facet arthropathy worse at RIGHT L4-L5 and LEFT L5-S1. 5. Slight anterolisthesis C6 on C7 on the clinical operations manager imaging. Disc bulging at this level with mild central canal stenosis. This can be further evaluated with cerv ical spine MRI.
== END 2023-04-20 08:38 | disposition home or self-care (01) ==
LOC: RAD 08:40
PROVIDERS: PCP Family Medicine; Visit Provider Orthopaedic Surgery
DX: M48.061 Spinal stenosis, lumbar region without neurogenic claudication (principal); M47.817 Spondylosis without myelopathy or radiculopathy, lumbosacral region; M48.02 Spinal stenosis, cervical region; M50.323 Other cervical disc degeneration at C6-C7 level
CPT/HCPCS: 20610; 72148; J3301

== ENCOUNTER → 2023-05-05 07:24 | Outpatient (BNVA) | payer MEDICARE, OTHER, SELFPAY | PROVIDERS: PCP Family Medicine; Visit Provider Student in an Organized Health Care Education/Training Program | DX: M17.0 Bilateral primary osteoarthritis of knee | CPT/HCPCS: 99213 ==

== ENCOUNTER → 2023-05-08 16:05 | Outpatient (BNVA) | payer MEDICARE, SELFPAY | PROVIDERS: PCP Family Medicine; Visit Provider Family Medicine | DX: D50.9 Iron deficiency anemia, unspecified (principal); E55.9 Vitamin D deficiency, unspecified | CPT/HCPCS: 80053; 82306; 82728; 83550; 85025 ==

== ENCOUNTER 2023-05-12 09:32 | Oncology outpatient (recurring) (ONCR) | payer MEDICARE, OTHER, SELFPAY | END 2023-06-08 23:59 | disposition home or self-care (01) | LOC: ONCMED 09:33 | PROVIDERS: PCP Family Medicine; Visit Provider Internal Medicine Medical Oncology | DX: D50.0 Iron deficiency anemia secondary to blood loss (chronic) (principal); K29.70 Gastritis, unspecified, without bleeding; B96.81 Helicobacter pylori [H. pylori] as the cause of diseases classified elsewhere; Z79.899 Other long term (current) drug therapy | CPT/HCPCS: 99213 ==

== ENCOUNTER → 2023-05-25 10:14 | Outpatient (BNVA) | payer MEDICARE, OTHER, SELFPAY | PROVIDERS: PCP Family Medicine; Visit Provider Orthopaedic Surgery | DX: M48.062 Spinal stenosis, lumbar region with neurogenic claudication (principal) | CPT/HCPCS: 99214 ==

== ENCOUNTER → 2023-08-04 10:15 | Outpatient (BNVA) | payer MEDICARE, OTHER, SELFPAY | PROVIDERS: PCP Family Medicine; Visit Provider Family Medicine | DX: D50.9 Iron deficiency anemia, unspecified (principal); Z01.419 Encounter for gynecological examination (general) (routine) without abnormal findings; I10 Essential (primary) hypertension; E78.5 Hyperlipidemia, unspecified; M79.7 Fibromyalgia; M25.561 Pain in right knee; G89.29 Other chronic pain; M25.562 Pain in left knee | CPT/HCPCS: 80061; 84443 ==

== ENCOUNTER 2023-08-09 10:45 | Outpatient (CLI) | payer MEDICARE, OTHER, SELFPAY ==
--- NOTE | 2023-08-09 11:00 | CTR_ITS ---
PROCEDURE INFORMATION: Exam: CT Chest Without Contrast; Diagnostic Exam date and time: 08/09/2023 10:58 AM Age: 68 years old Clinical indication: Shortness of breath; Additional info: R06.09 - other forms of dyspnea, CT chest in aug 2023 TECHNIQUE: Imaging protocol: Diagnostic computed tomography of the chest without contrast. Radiation optimization: All CT scans at this facility use at least one of these dose optimization techniques: automated exposure control; mA and/or kV adjustment per patient size (includes targeted exams where dose is matched to clinical indication); or iterative reconstruction. REPORTING DATA: Count of CT and Cardiac NM exams in prior 12 months: This patient has received 2 known CTs and 0 known cardiac nuclear medicine studies in the 12 months prior to the current study. COMPARISON: PT PET [facility] INITIAL [id number] 02/11/2023 9:58 AM RADIATION DOSE METRICS: Total DLP (mGy-cm): 621.66 FINDINGS: Lungs: Redemonstrated are bilateral upper lobe spiculated linear opacities. These appear similar in appearance when compared to a prior exam dated 01/15/2023. These measure approximately 2.0 x 3.2 cm in the posterior right lung apex. The opacity in the medial left lung apex measures approximately 19 mm by 13 mm . The pleural-based lesion in the peripheral left lung apex measures 1.5 cm x 1.4 cm. Pleural spaces: Unremarkable. No pneumothorax. No pleural effusion. Heart: Cardiomegaly. Coronary arteries: No coronary artery calcification. Lymph nodes: Mediastinal and hilar lymphadenopathy. The lymphadenopathy appears similar in appearance when compared to the prior examination Vasculature: Unremarkable. No aortic aneurysm. Liver: Ill-defined low-density lesion in the right and left lobe of the liver. Partially visualized cystic lesion in the right kidney. Bones/joints: Unremarkable. No acute fracture. Soft tissues: Unremarkable. CT/CT chest wo con [id number] IMPRESSION: 1. Stable appearing spiculated opacities in the upper lobes. Measurements are as above. Continued six-month follow-up imaging is recommended. 2. Stable mediastinal and hilar lymphadenopathy. 3. Stable low-density lesions in the right and left lobe of the liver and right kidney. COMMENTS: Consistent with the [employer]'s Incidental Findings Committee white paper (J Am Donna Radiol 2018): Any incidental renal lesion less than 1 cm or classified as too small to characterize, or any incidental cystic renal lesion characterized as simple-appearing, is likely benign. No follow-up imaging is recommended for these lesions per consensus recommendations based on imaging criteria.
== END 2023-08-09 10:46 | disposition home or self-care (01) ==
PROVIDERS: PCP Family Medicine; Visit Provider Internal Medicine Pulmonary Disease
DX: R06.09 Other forms of dyspnea (principal); R91.1 Solitary pulmonary nodule; R59.0 Localized enlarged lymph nodes
CPT/HCPCS: 71250

== ENCOUNTER → 2023-08-25 11:44 | Outpatient (BNVA) | payer MEDICARE, OTHER, SELFPAY | PROVIDERS: PCP Family Medicine; Visit Provider Family Medicine | DX: D50.9 Iron deficiency anemia, unspecified (principal); Z01.419 Encounter for gynecological examination (general) (routine) without abnormal findings; M79.7 Fibromyalgia | CPT/HCPCS: 80053; 82306; 82607; 83540; 85025 ==

== ENCOUNTER 2023-09-18 15:14 | Outpatient (CLI) | payer MEDICARE, OTHER, SELFPAY ==
--- NOTE | 2023-09-18 15:16 | MM_ITS ---
WS: [id number] BILATERAL 3D TOMOSYNTHESIS DIGITAL SCREENING MAMMOGRAPHY WITH CAD CLINICAL INFORMATION: Z12.39 - Encounter for other screening for malignant neop... HISTORY: Screening mammogram. No current complaints. COMPARISON: 09/16/2022 TECHNIQUE: Bilateral CC and MLO views. FINDINGS: Scattered fibroglandular densities bilaterally. No suspicious focal mass, asymmetry, calcifications, or architectural distortion. No evidence of malignancy. Incidental punctate and lucent centered calci fications. IMPRESSION: MM/[place] [id number] BI-RADS: 2-Benign FOLLOW UP: 1 Year Follow-up Recommend return to annual screening mammography.
== END 2023-09-18 15:15 | disposition home or self-care (01) ==
LOC: RAD 15:14
PROVIDERS: PCP Family Medicine; Visit Provider Family Medicine
DX: Z12.31 Encounter for screening mammogram for malignant neoplasm of breast (principal)
CPT/HCPCS: 77063; 77067

== ENCOUNTER 2023-11-17 09:19 | Oncology outpatient (recurring) (ONCR) | payer MEDICARE, OTHER, SELFPAY ==
[2023-11-13 15:50] LABS: Basophils # 0.1 10^3/uL (0.0-0.1); Basophils % 1.7 %; Eosinophils # 0.2 10^3/uL (0.0-0.8); Eosinophils % 2.9 %; Hematocrit 42.8 % (36-47); Lymphocytes # 1.9 10^3/uL (0.8-4.8); Lymphocytes % 22.1 %; Mean Corpuscular HGB Conc 33.2 g/dL (30-55); Mean Corpuscular Hemoglobin 29.1 pg (27-33); Mean Corpuscular Volume 87.7 fl (85-98); Mean Platelet Volume 10.4 fL (7.4-10.4); Monocytes # 0.6 10^3/uL (0.2-0.9); Monocytes % 6.9 %; Neutrophils # 5.53 10^3/uL (1.8-7.7); Nucleated Red Blood Cells % 0 %; Platelet Count 329 10^3/cmm (157-399); Red Blood Count 4.88 10^6/uL (3.85-5.65); Red Cell Distribution Width 12.5 % (12.1-15.1); White Blood Count 8.37 10^3/uL (3.29-11.43)
[2023-11-13 16:27] LABS: Alanine Aminotransferase 11 U/L (0-33); Albumin Level 3.8 g/dL (3.5-5.2); Alkaline Phosphatase 71 U/L (35-105); Anion Gap 12.3 (5-19); Aspartate Amino Transferase 14 U/L (0-32); Blood Urea Nitrogen 13 mg/dL (8-23); Calcium 9.2 mg/dL (8.5-10.5); Carbon Dioxide 28 mmol/L (22-29); Chloride 104 mmol/L (98-107); Ferritin 95 ng/mL (15-150); Glomerular Filtration Rate 62.6 mL/min (90-130); Glucose 102 mg/dL (65-115); Iron 54 ug/dL (37-145); Osmolality Calculated 292 mOsm/kg (285-295); Percent Saturation 22.9 % (20-50); Potassium 3.3 mmol/L (3.5-5.1); Sodium 141 mmol/L (136-145); Total Bilirubin 0.5 mg/dL (0.15-1.2); Total Iron Binding Capacity 235 mcg/dl; Total Protein 6.8 g/dL (6.6-8.7); Unsaturated Iron Binding 181 ug/dL (112-347)
== END 2023-12-07 23:59 | disposition home or self-care (01) ==
PROVIDERS: Internal Medicine Medical Oncology; Nurse Practitioner Family; PCP Family Medicine; Visit Provider Internal Medicine Medical Oncology
DX: D50.9 Iron deficiency anemia, unspecified (principal); R91.1 Solitary pulmonary nodule; D47.3 Essential (hemorrhagic) thrombocythemia
CPT/HCPCS: 36415; 80053; 82728; 83540; 83550; 85025; 99213

== ENCOUNTER 2023-11-19 09:19 | Emergency (ER) | payer MEDICARE, OTHER, SELFPAY ==
--- NOTE | 2023-11-19 09:24 | ECG_ITS ---
[facility] Test Date: 2023-11-19 Pat Name: Henny Downey Department: Room: Gender: Female Flue Gas Analyst: : 1955 Requested By: Elías Roberts Order Number: [id number] James MD: Elvin Renae M.D. Measurements Intervals [place] Rate: 66 P: 68 ID: [id number] QRS: 55 QRSD: 77 T: 66 QT: 411 QTc: 433 Interpretive Statements SINUS RHYTHM LOW QRS VOLTAGE IN PRECORDIAL LEADS [QRS DEFLECTION < 1.0 mV IN CHEST LEADS] Compared to ECG 01/16/2023 03:08:20 Low QRS voltage now present Electronically Signed On 11-20-2023 14:17:05 GREEN BUILDING DESIGN SPECIALIST by Elvin Renae M.D. [email or web address] [email or web address] [facility] [email or web address] [email or web address] [id number]
[2023-11-19 09:28] VITALS: BP 156/81; PULSE 64; RESP 16; TEMP 36.3; O2SAT 98; BMI 44.9
[2023-11-19 10:01] VITALS: BP 169/69; PULSE 64; O2SAT 97
[2023-11-19 10:31] VITALS: BP 156/81; PULSE 64; O2SAT 97
[2023-11-19 11:01] VITALS: BP 179/83; PULSE 67; O2SAT 98
--- NOTE | 2023-11-19 11:04 | XRR_ITS ---
PROCEDURE INFORMATION: Exam: XR Chest Exam date and time: 11/19/2023 11:23 AM Age: 68 years old Clinical indication: Shortness of breath; Patient HX: SOB; Mediastinal lymphnode inflammation TECHNIQUE: Imaging protocol: Radiologic exam of the chest. Views: 1 view. COMPARISON: CT chest [facility] [id number] 08/09/2023 10:58 AM FINDINGS: Lungs: Unremarkable. No consolidation. Pleural spaces: Unremarkable. No pleural effusion. No pneumothorax. Heart/Mediastinum: Unremarkable. No cardiomegaly. Bones/joints: Unremarkable. XR/XR chest 1V portable [id number] IMPRESSION: No acute findings.
[2023-11-19 11:11] LABS: Basophils # 0.1 10^3/uL (0.0-0.1); Basophils % 1.4 %; Eosinophils # 0.2 10^3/uL (0.0-0.8); Eosinophils % 2.2 %; Hematocrit 46.9 % (36-47); Lymphocytes # 1.7 10^3/uL (0.8-4.8); Lymphocytes % 19.4 %; Mean Corpuscular HGB Conc 32.6 g/dL (30-55); Mean Corpuscular Hemoglobin 28.8 pg (27-33); Mean Corpuscular Volume 88.3 fl (85-98); Monocytes # 0.6 10^3/uL (0.2-0.9); Monocytes % 6.7 %; Neutrophils # 6.18 10^3/uL (1.8-7.7); Nucleated Red Blood Cells % 0 %; Platelet Count 400 10^3/cmm (157-399); Red Blood Count 5.31 10^6/uL (3.85-5.65); Red Cell Distribution Width 12.7 % (12.1-15.1); White Blood Count 8.82 10^3/uL (3.29-11.43)
[2023-11-19 11:18] LABS: D Dimer 0.58 ug/mLFEU (0-0.59)
[2023-11-19 11:26] LABS: Anion Gap 15.1 (5-19); Blood Urea Nitrogen 15 mg/dL (8-23); Calcium 9.1 mg/dL (8.5-10.5); Carbon Dioxide 27 mmol/L (22-29); Chloride 103 mmol/L (98-107); Glucose 103 mg/dL (65-115); Osmolality Calculated 293 mOsm/kg (285-295); Potassium 4.1 mmol/L (3.5-5.1); Sodium 141 mmol/L (136-145)
[2023-11-19 11:35] LABS: NT Pro B Type Natriuretic Pept 268 pg/mL (0-125)
--- NOTE | 2023-11-19 12:27 | ED_ITS ---
HPI - SOB/Dyspnea 2 General: Chief Complaint: Shortness of Breath/Dyspnea Stated Complaint: sob Time Seen by Provider: 11/19/23 10:04 History of Present Illness: HPI Narrative: This patient is a 68-year-old white female who presents to the emergency department complaining of shortness of breath. Patient states this started 3 days ago. She states she was recently diagnosed with sarcoidosis by a band lining bander. She was told that if she does develop shortness of breath she needs to be on steroids. She denies having any chest pain. No coughing. No fever. She does not have a history of COPD, asthma or congestive heart failure. Review of Systems 2 General: Reports: 10 or more systems reviewed and unremarkable except in HPI and below Resp: Reports: dyspnea PFSH ED 2 PFSH: Medical History Anxiety and depression Coronary artery spasm Helicobacter pylori gastritis Pap smear of vagina with ASC-US Iron deficiency anemia Vitamin D deficiency GERD (gastroesophageal reflux disease) Fibromyalgia Seasonal allergies Hx of fracture of clavicle Metabolic syndrome Apnea, sleep Degenerative arthritis of knee Arteriosclerotic heart disease (ASHD) Diverticulosis Thrombocytosis Rosacea Surgical History History of open reduction and internal fixation (ORIF) procedure For right clavicle fracture History of colonoscopy (02/18/20) History of hysterectomy History of knee surgery Hx of angioplasty Hx of amputation Partial R greater toe Family History Father Diabetes COPD (chronic obstructive pulmonary disease) Thyroid disease Mother Hypertension Cancer MOTHER HAS A HISTORY OF KIDNEY CANCER Stroke Brother Diabetes Grandfather Colon cancer paternal Sister Colon cancer, Onset Age: 35 Denies family history of Ovarian cancer Clotting disorder Heart disease Hyperlipidemia Breast cancer Anesthesia complication Bleeding disorder Uterine cancer Social History Smoking and tobacco/nicotine status: former use of tobacco/nicotine Quit status (tobacco/nicotine): has quit using Year quit tobacco: 1984 Former quit date comment: 1 ppd X 10 years Second hand smoke exposure: No Alcohol intake: current Alcohol intake frequency: holidays/special occasions only Alcohol type: wine and hard liquor Substance/Drug Use: never Lives independently: Yes Household members: significant other Marital status: service: No Current occupational status: employed Current gender identity: Female Special cristofer needs: No Agree to transfusion: Yes Female Reproductive History: Date of menopause: 11/22/88 Physical Exam 2 Const: COMMON NORMALS: no acute distress, patient oriented x3 and no limitations GENERAL APPEARANCE: cooperative and comfortable HENMT: COMMON NORMALS: normocephalic, atraumatic, Normal nasal mucous membranes and turbinates present, moist oral mucous membranes and oropharynx normal HEAD & SCALP: normal to inspection, normocephalic and atraumatic F TAMIR & SINUS: normal facial exam NOSE: Normal nasal mucous membranes and turbinates present Eye: COMMON NORMALS: Equal, round and reactive pupils present, EOMs intact bilaterally and conjunctivae normal GENERAL EYE: appearance normal, both eyes and all related structures CONJUNCTIVA: Yes conjunctivae normal PUPIL: Yes Equal, round and reactive pupils present Neck/C-Spine: COMMON NORMALS: supple and no JVD Chest: COMMONS NORMALS: normal inspection of the chest Resp: COMMON NORMALS: normal respiratory effort and clear to auscultation bilaterally AUSCULTATION: clear to auscultation bilaterally Cardio: COMMON NORMALS: no JVD, regular rate, regular rhythm, No gallops present (Cardio), No murmurs present (Cardio) and No rub (Cardio) RATE: r egular rate RHYTHM: regular rhythm GI: COMMON NORMALS: Normal to inspection, nondistended, normoactive bowel sounds present, Soft to palpation and non-tender AUSCULTATION: Yes normoactive bowel sounds PALPATION: Yes Soft to palpation : COMMON NORMALS: Yes no CVA tenderness BLADDER/KIDNEY EXAM: Yes no CVA tenderness Back/Pelvis: COMMON NORMALS: no CVA tenderness and thoracic and lumbar spine normal to inspection Extremity: COMMON NORMALS: normal to inspection Neuro: COMMON NORMALS: patient oriented x3 and CN's II-XII intact bilaterally Psych: COMMON NORMALS: mental status grossly normal, Normal thought process present and cooperative THOUGHT PROCESS: Normal thought process present Skin: COMMON NORMALS: no rashes or lesions noted, turgor normal and no jaundice GENERAL SKIN EXAM: no rashes or lesions noted and turgor normal Course 2 Vital Signs: Vital signs: Vital Signs Temperature 97.4 F L 11/19/23 09:28 Pulse Rate 67 11/19/23 11:01 Respiratory Rate 16 11/19/23 09:28 Blood Pressure 179/83 11/19/23 11:01 Pulse Oximetry 98 11/19/23 11:01 Oxygen Delivery Me thod Room Air 11/19/23 09:28 MDM - SOB/Dyspnea Medical Decision Making EKG revealed normal sinus rhythm with no ST segment abnormalities. Chest x-ray was normal. CBC and BMP were normal. BNP was 268. D-dimer 0.58. Patient is satting 98% on room air. I did place her on prednisone burst and taper. Recommended she follow-up with her band lining bander and/or primary care physician for recheck and ongoing management. She was discharged in stable condition. Lab Data 11/19/23 09:45 11/19/23 09:45 Labs/Radiology: Radiology Impressions Chest X-Ray 11/19/23 11:04 IMPRESSION: No acute findings. Laboratory Results WBC 8.82 10^3/uL (3.29-11.43) 11/19/23 09:45 RBC 5.31 10^6/uL (3.85-5.65) 11/19/23 09:45 Hgb 15.30 g/dL (11.27-16.99) 11/19/23 09:45 Hct 46.9 % (36-47) 11/19/23 09:45 MCV 88.3 fl (85-98) 11/19/23 09:45 MCH 28.8 pg (27-33) 11/19/23 09:45 MCHC 32.6 g/dL (30-55) 11/19/23 09:45 RDW 12.7 % (12.1-15.1) 11/19/23 09:45 Plt Count 400 10^3/cmm (157-399) H 11/19/23 09:45 MPV 11.0 fL (7.4-10.4) H 11/19/23 09:45 Neut % (Auto) 70.0 % 11/19/23 09:45 Lymph % (Auto) 19.4 % 11/19/23 09:45 Citrus % (Auto) 6.7 % 11/19/23 09:45 Eos % (Auto) 2.2 % 11/19/23 09:45 Baso % (Auto) 1.4 % 11/19/23 09:45 Neut # (Auto) 6.18 10^3/uL (1.8-7.7) 11/19/23 09:45 Lymph # (Auto) 1.7 10^3/uL (0.8-4.8) 11/19/23 09:45 Citrus # (Auto) 0.6 10^3/uL (0.2-0.9) 11/19/23 09:45 Eos # (Auto) 0.2 10^3/uL (0.0-0.8) 11/19/23 09:45 Baso # (Auto) 0.1 10^3/uL (0.0-0.1) 11/19/23 09:45 Nucleated RBC % (auto) 0 % 11/19/23 09:45 Nucleated RBCs # 0.0 /100WBC 11/19/23 09:45 D-Dimer 0.58 ug/mLFEU (0-0.59) 11/19/23 09:45 Sodium 141 mmol/L (136-145) 11/19/23 09:45 Potassium 4.1 mmol/L (3.5-5.1) 11/19/23 09:45 Chloride 103 mmol/L (98-107) 11/19/23 09:45 Carbon Dioxide 27 mmol/L (22-29) 11/19/23 09:45 Anion Gap 15.1 (5-19) 11/19/23 09:45 BUN 15 mg/dL (8-23) 11/19/23 09:45 Creatinine 0.6 mg/dL (0.5-0.9) 11/19/23 09:45 GFR Calculation 100.0 mL/min (90-130) 11/19/23 09:45 Glucose 103 mg/dL (65-115) 11/19/23 09:45 Calculated Osmolality 293 mOsm/kg (285-295) 11/19/23 09:45 Calcium 9.1 mg/dL (8.5-10.5) 11/19/23 09:45 NT-Pro-B Natriuret Pep 268 pg/mL (0-125) H 11/19/23 09:45 All radiology interpretation(s) finalized by discharge Discharge Plan Discharge Patient Disposition: Home Clinical Impression: Shortness of breath Condition: Stable Prescriptions: New prednisone 5 mg tablets,dose pack See Rx Instructions PO .COMPLEX Qty: 21 0RF Rx Instructions: prednisone 5 mg: take 8 tablets (40 mg) on Day 1; 7 tablets (35 mg) on Day 2; then decrease by 1 tablet every day until finished No Action mupirocin 2 % ointment 1 applic topical BID PRN (Reason: sores) Qty: 22 0RF triamcinolone acetonide [Nasacort] 55 mcg aerosol,spray 1 spray intranasal DAILY PRN Rx Instructions: administer into each nostril meloxicam 15 mg tablet See Rx Instructions .ROUTE .COMPLEX Qty: 30 2RF Dose Instruction: TAKE ONE TABLET BY MOUTH DAILY Rx Instructions: TAKE ONE TABLET BY MOUTH DAILY pantoprazole 40 mg tablet,delayed release (DR/EC) See Rx Instructions .ROUTE .COMPLEX Qty: 60 3RF Dose Instruction: TAKE 1 TABLET BY MOUTH TWICE DAILY FOR 14 DAYS Rx Instructions: TAKE 1 TABLET BY MOUTH TWICE DAILY Durolane 60 mg/3 mL syringe 60 mg intra-articular ONCE Qty: 3 0RF Victoza 3-Aubrey 0.6 mg/0.1 mL (18 mg/3 mL) pen injector See Rx Instructions SUBCUT .COMPLEX Qty: 9 2RF Hold Instructions: Patient No Longer Taking Rx Instructions: inject 0.6mg subcut once daily x 7 days; then 1.2mg daily,then 1.8 daily for a week,then 2,4 for a week, then 3.0 daily (DME) pen needle, diabetic [Comfort EZ Pen [place]] 32 gauge x 5/16 needle See Rx Instructions .Route Qty: 100 0RF Rx Instructions: As directed cefdinir 300 mg capsule 300 mg PO BID Qty: 20 0RF fluconazole 150 mg tablet 150 mg PO Q3D Qty: 3 0RF nystatin 100,000 unit/gram powder 1 applic topical BID Qty: 60 1RF phentermine [Adipex-P] 37.5 mg tablet 37.5 mg PO DAILY Qty: 30 0RF Rx Instructions: must administer 30 minutes before or 1-2 hours after breakfast albuterol sulfate [ProAir HFA] 90 mcg/actuation HFA aerosol inhaler 2 puff INHALATION Q6H PRN (Reason: Shortness Of Breath) Qty: 18 2RF levocetirizine 5 mg tablet 5 mg PO DAILY Qty: 30 3RF Rx Instructions: TAKE 1 TABLET EVERY DAY nebivolol 10 mg tablet See Rx Instructions .ROUTE .COMPLEX Qty: 30 2RF Dose Instruction: TAKE 1 TABLET BY MOUTH EVERY DAY Rx Instructions: TAKE 1 TABLET BY MOUTH EVERY DAY montelukast 10 mg tablet 10 mg PO DAILY Qty: 30 3RF Rx Instructions: TAKE 1 TABLET EVERY DAY buspirone 10 mg tablet 10 mg PO BID PRN (Reason: Anxiety) duloxetine 60 mg capsule,delayed release(DR/EC) 60 mg PO BID cranberry 400 mg Capsule 400 mg PO DAILY Rx Instructions: administer with a meal Discharge Orders: Discharge ED (Routine); Ordered 11/19/23 Ordered By: Elías Roberts Referrals: Veronica Rodríguez MD [Primary Care Provider] - Activity Restrictions/Additional Instructions: Follow-up with your primary care provider and/or band lining bander for recheck and ongoing management. Coding Level of Care Code ED [employer] Clerk for Gopal Contreras
== END 2023-11-19 12:14 | disposition home or self-care (01) ==
PROVIDERS: Emergency Provider Emergency Medicine; PCP Family Medicine
DX: R06.02 Shortness of breath (principal); Z87.891 Personal history of nicotine dependence
CPT/HCPCS: 71045; 80048; 83880; 85025; 85378; 93005; 99285

== ENCOUNTER → 2023-11-21 09:23 | Outpatient (BNVA) | payer MEDICARE, OTHER, SELFPAY | PROVIDERS: PCP Family Medicine; Visit Provider Physician Assistant | DX: M17.0 Bilateral primary osteoarthritis of knee | CPT/HCPCS: 20610; 99213; J7318 ==

== ENCOUNTER 2024-02-07 15:10 | Outpatient (CLI) | payer MEDICARE, OTHER, SELFPAY ==
--- NOTE | 2024-02-07 15:30 | CTR_ITS ---
PROCEDURE INFORMATION: Exam: CT Chest Without Contrast; Diagnostic Exam date and time: 02/07/2024 3:16 PM Age: 68 years old Clinical indication: Abnormal findings; Abnormal radiologic exam of lung or chest; Patient HX: . Stable appearing spiculated opacities in the upper lobes. Measurements are as above. Continued six-month follow-up imaging is recommended. 2. Stable mediastinal and hilar lymphadenopathy. 3. Stable low-density lesions in the right and left lobe of the liver and right kidney; Additional info: 6 month f/u TECHNIQUE: Imaging protocol: Diagnostic computed tomography of the chest without contrast. Radiation optimization: All CT scans at this facility use at least one of these dose optimization techniques: automated exposure control; mA and/or kV adjustment per patient size (includes targeted exams where dose is matched to clinical indication); or iterative reconstruction. COMPARISON: CT chest con [id number] 08/09/2023 10:58 AM and CTA chest 01/15/2023 RADIATION DOSE METRICS: Total DLP (mGy-cm): 570.61 FINDINGS: Lungs: There are biapical stellate shaped consolidative opacity stable from earlier studies likely postinflammatory in nature representing areas of chronic subsegmental atelectasis. Remaining lung beatty aerated and clear. Pleural spaces: Unremarkable. No pneumothorax. No pleural effusion. Heart: Heart is not significantly enlarged. There are mild calcifications of the coronary arteries. No significant pericardial effusion. Lymph nodes: Mild mediastinal lymphadenopathy stable from most recent exam is slightly improved from earlier study. Vasculature: Unremarkable. No aortic aneurysm. Liver: The 2 benign-appearing liver cysts unchanged. Bones/joints: There are no acute bony abnormalities or suspicious bone lesions detected. Soft tissues: Unremarkable. CT/CT chest con [id number] IMPRESSION: 1. Stable biapical stellate shaped consolidative opacities unchanged from 01/15/2023 likely postinflammatory in nature. Recommend a 1 year follow-up study for continued surveillance. 2. Mild mediastinal lymphadenopathy slightly improved from 01/15/2023 and can also be reassessed on follow-up study in 1 year.
== END 2024-02-07 15:11 | disposition home or self-care (01) ==
LOC: RAD 15:11
PROVIDERS: PCP Family Medicine; Visit Provider Internal Medicine Pulmonary Disease
DX: R91.1 Solitary pulmonary nodule (principal); R59.0 Localized enlarged lymph nodes; N28.9 Disorder of kidney and ureter, unspecified; K76.9 Liver disease, unspecified; J98.11 Atelectasis
CPT/HCPCS: 71250

== ENCOUNTER → 2024-05-06 09:21 | Outpatient (BNVA) | payer MEDICARE, OTHER, SELFPAY | PROVIDERS: PCP Family Medicine; Visit Provider Family Medicine | DX: I10 Essential (primary) hypertension (principal); E78.5 Hyperlipidemia, unspecified; R53.83 Other fatigue; M25.562 Pain in left knee; G89.29 Other chronic pain; M25.561 Pain in right knee; M79.7 Fibromyalgia; J01.00 Acute maxillary sinusitis, unspecified; M19.90 Unspecified osteoarthritis, unspecified site | CPT/HCPCS: 80053; 80061; 82306; 82607; 83540; 84443; 85025 ==

== ENCOUNTER → 2024-05-28 11:15 | Outpatient (BNVA) | payer MEDICARE, OTHER, SELFPAY | PROVIDERS: PCP Family Medicine; Visit Provider Physician Assistant | DX: M17.0 Bilateral primary osteoarthritis of knee (principal) | CPT/HCPCS: 20610; 99213; J3301 ==

== ENCOUNTER → 2024-06-06 15:40 | Outpatient (BNVA) | payer MEDICARE, OTHER, SELFPAY | PROVIDERS: PCP Family Medicine; Visit Provider Orthopaedic Surgery | DX: M48.062 Spinal stenosis, lumbar region with neurogenic claudication (principal); M54.9 Dorsalgia, unspecified | CPT/HCPCS: 72110; 99213 ==

== ENCOUNTER → 2024-08-02 13:10 | Outpatient (BNVA) | payer MEDICARE, OTHER, SELFPAY | PROVIDERS: PCP Nurse Practitioner Family; Visit Provider Nurse Practitioner Family | DX: I10 Essential (primary) hypertension (principal) | CPT/HCPCS: 80053; 85025 ==

== ENCOUNTER → 2024-08-12 09:45 | Outpatient (BNVA) | payer MEDICARE, OTHER, SELFPAY | PROVIDERS: PCP Nurse Practitioner Family; Visit Provider Podiatrist Foot & Ankle Surgery | DX: M67.472 Ganglion, left ankle and foot | CPT/HCPCS: 99203 ==

== ENCOUNTER → 2024-09-03 08:30 | Outpatient (BNVA) | payer MEDICARE, OTHER, SELFPAY | PROVIDERS: PCP Nurse Practitioner Family; Visit Provider Physician Assistant | DX: M17.0 Bilateral primary osteoarthritis of knee (principal) | CPT/HCPCS: 20610; 99213; J7318 ==

== ENCOUNTER → 2024-10-28 07:14 | Outpatient (BNVA) | payer MEDICARE, OTHER, SELFPAY | PROVIDERS: PCP Nurse Practitioner Family; Visit Provider Anesthesiology Pain Medicine | DX: M48.062 Spinal stenosis, lumbar region with neurogenic claudication (principal); M51.16 Intervertebral disc disorders with radiculopathy, lumbar region | CPT/HCPCS: 99204 ==

== ENCOUNTER → 2024-11-13 09:37 | Outpatient (BNVA) | payer MEDICARE, OTHER, SELFPAY | PROVIDERS: PCP Nurse Practitioner Family; Visit Provider Anesthesiology Pain Medicine | DX: M54.16 Radiculopathy, lumbar region (principal); M48.062 Spinal stenosis, lumbar region with neurogenic claudication | CPT/HCPCS: 64483; 64484; J1100; J3490 ==

== ENCOUNTER → 2024-11-25 14:35 | Outpatient (BNVA) | payer MEDICARE, OTHER, SELFPAY | PROVIDERS: PCP Nurse Practitioner Family; Visit Provider Anesthesiology Pain Medicine | DX: M48.062 Spinal stenosis, lumbar region with neurogenic claudication (principal); M51.16 Intervertebral disc disorders with radiculopathy, lumbar region | CPT/HCPCS: 99214 ==

== ENCOUNTER → 2024-12-04 08:07 | Outpatient (BNVA) | payer MEDICARE, OTHER, SELFPAY | PROVIDERS: PCP Nurse Practitioner Family; Visit Provider Physician Assistant | DX: M17.0 Bilateral primary osteoarthritis of knee (principal); M25.561 Pain in right knee; M25.562 Pain in left knee; G89.29 Other chronic pain | CPT/HCPCS: 20610; 99213; J3301 ==

== ENCOUNTER 2024-12-04 18:11 | Emergency (ER) | payer MEDICARE, OTHER, SELFPAY ==
--- NOTE | 2024-12-04 18:10 | ECG_ITS ---
[facility] 2024[facility]04 Pat Name: Henny Downey Department: Room: Gender: Female Credit Control Officer: : 1955 Requested By: Rubén Castaneda Order Number: [id number] Reading MD: Measurements Intervals [place] Rate: 134 P: 55 [place]: 148 QRS: 1 QRSD: 69 T: 71 QT: 297 QTc: 445 Interpretive Statements SINUS TACHYCARDIA LOW QRS VOLTAGE IN PRECORDIAL LEADS [QRS DEFLECTION < 1.0 mV IN CHEST LEADS] ANTERIOR MYOCARDIAL INFARCTION , PROBABLY OLD [40+ ms Q WAVE AND/OR ST/T ABNORMALITY IN V3/V4] No previous ECG available for comparison [id number]
[2024-12-04 18:14] VITALS: BP 147/95; PULSE 135; RESP 18; TEMP 36.7; O2SAT 95; BMI 46.3
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
[2024-12-04] MEDS: iohexol 350 mg/mL 500 mL Btl (per mL) IV (19:22)
[2024-12-04] MEDS: morphine 4 mg/mL SDV 1 mL IM (19:39)
[2024-12-04] MEDS: HYDROMORPHONE HCL 0.5 MG/0.5 ML INJ 1 MG IVP ×2 (20:05→21:02)
[2024-12-04 20:35] VITALS: PULSE 127; RESP 18; O2SAT 99
[2024-12-04 20:43] LABS: Basophils # 0.1 10^3/uL (0.0-0.1); Basophils % 0.2 %; Hematocrit 44.6 % (36-47); Lymphocytes # 0.6 10^3/uL (0.8-4.8); Mean Corpuscular HGB Conc 31.6 g/dL (30-55); Mean Corpuscular Hemoglobin 26.8 pg (27-33); Mean Corpuscular Volume 84.6 fl (85-98); Mean Platelet Volume 10.4 fL (7.4-10.4); Monocytes # 0.6 10^3/uL (0.2-0.9); Monocytes % 1.8 %; Neutrophils % 95.1 %; Nucleated Red Blood Cells % 0 %; Platelet Count 433 10^3/cmm (157-399); Red Blood Count 5.27 10^6/uL (3.85-5.65); Red Cell Distribution Width 13.3 % (12.1-15.1)
[2024-12-04 20:48] LABS: White Blood Count 30.31 10^3/uL (3.29-11.43)
[2024-12-04 20:59] LABS: Alanine Aminotransferase 26 U/L (0-33); Albumin Level 3.9 g/dL (3.5-5.2); Alkaline Phosphatase 118 U/L (35-105); Aspartate Amino Transferase 47 U/L (0-32); Blood Urea Nitrogen 20 mg/dL (8-23); Calcium 8.7 mg/dL (8.5-10.5); Carbon Dioxide 20 mmol/L (22-29); Chloride 103 mmol/L (98-107); Creatinine Clr Calc Pharmacy 88.1282; Globulin 3.3 g/dL (1.3-4.6); Glomerular Filtration Rate 99.7 mL/min (90-130); Glucose 284 mg/dL (65-115); Osmolality Calculated 293 mOsm/kg (285-295); Sodium 135 mmol/L (136-145); Total Bilirubin 0.3 mg/dL (0.15-1.2); Total Protein 7.2 g/dL (6.6-8.7)
[2024-12-04 21:46] VITALS: BP 149/89; PULSE 103; O2SAT 95
== END 2024-12-04 21:55 | disposition short-term general hospital (02) ==
PROVIDERS: Emergency Provider Emergency Medicine; PCP Nurse Practitioner Family
DX: S82.392A Other fracture of lower end of left tibia, initial encounter for closed fracture (principal); S22.20XA Unspecified fracture of sternum, initial encounter for closed fracture; S32.2XXA Fracture of coccyx, initial encounter for closed fracture; S22.020A Wedge compression fracture of second thoracic vertebra, initial encounter for closed fracture; S22.080A Wedge compression fracture of T11-T12 vertebra, initial encounter for closed fracture; V89.2XXA Person injured in unspecified motor-vehicle accident, traffic, initial encounter; Z87.891 Personal history of nicotine dependence
CPT/HCPCS: 36415; 70450; 71101; 71260; 72125; 73590; 73610; 74177; 80053; 85025; 93005; 96372; 96374; 96376; 99285; J1171; J2270

== ENCOUNTER → 2025-03-11 08:09 | Outpatient (BNVA) | payer MEDICARE, OTHER, SELFPAY | PROVIDERS: PCP Nurse Practitioner Family; Visit Provider Anesthesiology Pain Medicine | DX: M48.062 Spinal stenosis, lumbar region with neurogenic claudication (principal); M51.16 Intervertebral disc disorders with radiculopathy, lumbar region | CPT/HCPCS: 20610; 99214; J3301; J9999 ==

== ENCOUNTER → 2025-03-18 10:59 | Outpatient (BNVA) | payer MEDICARE, OTHER, SELFPAY | PROVIDERS: PCP Nurse Practitioner Family; Visit Provider Nurse Practitioner Family | DX: I10 Essential (primary) hypertension (principal); R73.9 Hyperglycemia, unspecified; M79.7 Fibromyalgia | CPT/HCPCS: 80053; 80061; 82306; 82607; 83036; 84443; 85025 ==

== ENCOUNTER → 2025-04-04 09:48 | Outpatient (BNVA) | payer MEDICARE, OTHER, SELFPAY | PROVIDERS: PCP Nurse Practitioner Family; Visit Provider Nurse Practitioner Family | DX: I10 Essential (primary) hypertension (principal); D72.829 Elevated white blood cell count, unspecified | CPT/HCPCS: 84439; 84443; 85025 ==

== ENCOUNTER 2025-04-17 07:58 | Outpatient (CLI) | payer MEDICARE, OTHER, SELFPAY ==
--- NOTE | 2025-04-17 08:30 | MM_ITS ---
WS: [id number] BILATERAL 3D TOMOSYNTHESIS DIGITAL DIAGNOSTIC MAMMOGRAPHY WITH CAD CLINICAL INFORMATION: Z00.00 - Encounter for general adult medical examination ... HISTORY: Palpable lesion RIGHT breast COMPARISON: 2022 TECHNIQUE: Bilateral CC, MLO, and ML views. FINDINGS: Scattered fibroglandular densities bilaterally. Lucent centered calcification LEFT breast. Oil cyst upper outer RIGHT breast is new compared to previous in the area of prior trauma likely due to fat necrosis. Ultrasound of this area is pending. Central RIGHT breast nodularity is unchanged. Unremarkable LEFT breast ULTRASOUND BREAST RIGHT TECHNIQUE: Ultrasound right breast focused area of concern. CLINICAL INFORMATION: Z00.00 - Encounter for general adult medical examination ... FINDINGS: Ultrasound RIGHT breast in the area of concern. At the 10 o'clock position 8 cm from the nipple patient directed is an incidental cyst compatible with the oil cyst seen on the mammogram likely due to prior trauma and fat necrosis. Peripheral wall calcification. No other suspicious abnormalities. Recommend return to annual screening mammography MM/MM diag BI tomosynthesis [id number] IMPRESSION: DENSITY: There are scattered areas of fibroglandular density. BI-RADS: 2 - Benign. FOLLOW UP: 1 Year Follow-up Recommend return to annual screening mammography.
--- NOTE | 2025-04-17 08:33 | US_ITS ---
WS: [id number] BILATERAL 3D TOMOSYNTHESIS DIGITAL DIAGNOSTIC MAMMOGRAPHY WITH CAD CLINICAL INFORMATION: Z00.00 - Encounter for general adult medical examination ... HISTORY: Palpable lesion RIGHT breast COMPARISON: 2022 TECHNIQUE: Bilateral CC, MLO, and ML views. FINDINGS: Scattered fibroglandular densities bilaterally. Lucent centered calcification LEFT breast. Oil cyst upper outer RIGHT breast is new compared to previous in the area of prior trauma likely due to fat necrosis. Ultrasound of this area is pending. Central RIGHT breast nodularity is unchanged. Unremarkable LEFT breast ULTRASOUND BREAST RIGHT TECHNIQUE: Ultrasound right breast focused area of concern. CLINICAL INFORMATION: Z00.00 - Encounter for general adult medical examination ... FINDINGS: Ultrasound RIGHT breast in the area of concern. At the 10 o'clock position 8 cm from the nipple patient directed is an incidental cyst compatible with the oil cyst seen on the mammogram likely due to prior trauma and fat necrosis. Peripheral wall calcification. No other suspicious abnormalities. Recommend return to annual screening mammography US/US breast RT limited* [id number] IMPRESSION: DENSITY: There are scattered areas of fibroglandular density. BI-RADS: 2 - Benign. FOLLOW UP: 1 Year Follow-up Recommend return to annual screening mammography.
== END 2025-04-17 07:59 | disposition home or self-care (01) ==
LOC: RAD 07:59
PROVIDERS: PCP Nurse Practitioner Family; Visit Provider Nurse Practitioner Family
DX: N60.01 Solitary cyst of right breast (principal)
CPT/HCPCS: 76642; 77062; G0279

== ENCOUNTER → 2025-04-20 12:13 | Outpatient (BNVA) | payer MEDICARE, SELFPAY | PROVIDERS: PCP Nurse Practitioner Family; Visit Provider Nurse Practitioner | DX: R39.9 Unspecified symptoms and signs involving the genitourinary system (principal); N30.01 Acute cystitis with hematuria; N30.00 Acute cystitis without hematuria | CPT/HCPCS: 81000; 87077; 87086; 87184 ==

== ENCOUNTER → 2025-05-06 10:54 | Outpatient (BNVA) | payer MEDICARE, SELFPAY | PROVIDERS: PCP Nurse Practitioner Family; Visit Provider Anesthesiology Pain Medicine | DX: M79.18 Myalgia, other site (principal); M48.062 Spinal stenosis, lumbar region with neurogenic claudication; M51.16 Intervertebral disc disorders with radiculopathy, lumbar region | CPT/HCPCS: 20553; 99214; J1010; J3490 ==

== ENCOUNTER → 2025-06-02 13:26 | Outpatient (BNVA) | payer MEDICARE, OTHER, SELFPAY | PROVIDERS: PCP Nurse Practitioner Family; Visit Provider Nurse Practitioner Family | DX: R39.9 Unspecified symptoms and signs involving the genitourinary system (principal) | CPT/HCPCS: 81000 ==

== ENCOUNTER → 2025-06-17 10:03 | Outpatient (BNVA) | payer MEDICARE, OTHER, SELFPAY | PROVIDERS: PCP Nurse Practitioner Family; Visit Provider Physician Assistant | DX: M17.0 Bilateral primary osteoarthritis of knee (principal); Z71.89 Other specified counseling | CPT/HCPCS: 20610; 99213; J3301; J9999 ==

== ENCOUNTER → 2025-06-22 11:18 | Outpatient (BNVA) | payer MEDICARE, OTHER, SELFPAY | PROVIDERS: PCP Nurse Practitioner Family; Visit Provider Registered Nurse Neonatal Intensive Care | DX: R39.9 Unspecified symptoms and signs involving the genitourinary system (principal) | CPT/HCPCS: 81000; 87086 ==

== ENCOUNTER → 2025-09-23 10:48 | Outpatient (BNVA) | payer MEDICARE, OTHER, SELFPAY | PROVIDERS: PCP Nurse Practitioner Family; Visit Provider Student in an Organized Health Care Education/Training Program | DX: M17.0 Bilateral primary osteoarthritis of knee (principal) | CPT/HCPCS: 20610; 99213; J3301; J9999 ==

== ENCOUNTER → 2025-09-29 08:05 | Outpatient (BNVA) | payer MEDICARE, OTHER, SELFPAY | PROVIDERS: PCP Nurse Practitioner Family; Visit Provider Nurse Practitioner Family | DX: E11.9 Type 2 diabetes mellitus without complications (principal); M25.50 Pain in unspecified joint; I10 Essential (primary) hypertension; M79.7 Fibromyalgia | CPT/HCPCS: 80053; 80061; 82306; 82533; 82607; 83036; 84443; 85025; 85651; 86140; 86160; 86162; 86200; 86235; 86255; 86376; 86431 ==

== ENCOUNTER → 2025-10-07 10:28 | Outpatient (BNVA) | payer MEDICARE, OTHER, SELFPAY | PROVIDERS: PCP Nurse Practitioner Family; Visit Provider Nurse Practitioner Family | DX: D72.829 Elevated white blood cell count, unspecified (principal) | CPT/HCPCS: 80503; 85025 ==